=== PATIENT | female | born 1940 | race Caucasian/White ===

== ENCOUNTER 2017-02-01 09:56 | Day surgery (SDC) | payer MEDICARE ==
[2017-01-30 15:08] VITALS: BMI 30.1
[~2017-02-01 09:56] MED LIST: LACTATED RINGERS 1,000 ML IV SCH
[2017-02-01 10:52] VITALS: TEMP 97.7
[2017-02-01] MEDS ORDERED: LIDOCAINE 1% 20 ML VIAL (10MG/ML) FOR IV START INTRADERMA ONE (11:06)
[2017-02-01] MEDS ORDERED: PROPOFOL 10 MG/ML 20 ML VIAL IV ONE (11:07)
[2017-02-01 11:09] LABS: Glucose,Whole Blood 162 mg/dL (75-99)
--- NOTE | 2017-02-01 11:48 | P.PCN ---
Date of Procedure: 02/01/17 Preoperative Diagnosis: Postoperative Diagnosis: Procedure(s) Performed: BRIEF HISTORY: Patient is a -76 year-old pleasant white female, scheduled for an elective colonoscopy as a part of evaluation of recent episode of severe abdominal pain followed by bloody diarrhea for the duration. Her symptoms resolved within one to 2 days and she was discharged home from the hospital. She is scheduled for an outpatient colonoscopy to evaluate further. PROCEDURE PERFORMED: Colonoscopy. PREOPERATIVE DIAGNOSIS: Recent episode of abdominal pain and bloody diarrhea of 1 day duration. IV sedation per Anesthesia. PROCEDURE: After informed consent was obtained, the patient, was brought into the endoscopy unit. IV sedation was administered by Anesthesia under continuous monitoring. Digital rectal examination was normal. Initially the Olympus CF- 160 flexible video colonoscope was then inserted in the rectum, gradually advanced into the sigmoid colon and further advancement was not possible because of acute angle duration and this area. The scope was removed and a pediatric colonoscopy was introduced into the rectum and gradually advanced into the cecum moderate to severe difficulty. Careful examination was performed as the scope was gradually being withdrawn. Ileocecal valve and the appendiceal orifice were visualized and appeared normal. Prep was excellent. Mucosa of the cecum, ascending colon, transverse colon, descending colon, sigmoid colon, and rectum appeared normal. Retroflexion was performed in the rectum and no lesions were seen. The patient tolerated the procedure well. IMPRESSION: Normal-appearing colon from rectum to cecum with no evidence of colitis or colon neoplasia. RECOMMENDATIONS: Findings of this examination were discussed with the patient as well as a family. She was advised to have a repeat screening colonoscopy in 7-10 years based on her overall medical condition. The recent episode of abdominal pain and diarrhea was most likely related to an acute infectious colitis versus ischemic colitis and has completely resolved.. Implants: Indications for Procedure: Operative Findings: Description of Procedure:
[2017-02-01 11:52] VITALS: RESP 16
[2017-02-01 12:06] VITALS: BP 146/67; PULSE 59
== END 2017-02-01 12:32 | disposition home or self-care (01) ==
LOC: ORWHC2ENDO 09:56
PROVIDERS: ATTEND Internal Medicine Gastroenterology
DX: K52.9 Noninfective gastroenteritis and colitis, unspecified (principal); R10.9 Unspecified abdominal pain; K21.9 Gastro-esophageal reflux disease without esophagitis; I10 Essential (primary) hypertension; Z87.891 Personal history of nicotine dependence; E11.9 Type 2 diabetes mellitus without complications; Z79.84 Long term (current) use of oral hypoglycemic drugs; F39 Unspecified mood [affective] disorder; Z79.891 Long term (current) use of opiate analgesic; Z79.51 Long term (current) use of inhaled steroids; Z79.899 Other long term (current) drug therapy
CPT/HCPCS: 45378; J2704

== ENCOUNTER 2017-03-06 07:52 | Day surgery (SDC) | payer MEDICARE ==
[2017-02-28 15:49] VITALS: BMI 28.3
[~2017-03-06 07:52] MED LIST changes: +DEXAMETHASONE SOD PHOSPHATE 10 MG/ML 1 ML VIAL IV ONE; +HYDROmorphone 1 MG/ML 1 ML SYRINGE IVP PRN; +MIDAZOLAM 2 MG/2 ML VIAL IV PRN; +ONDANSETRON 4 MG/2 ML VIAL IVP ONE; +ceFAZolin 2 GM in SODIUM CHLORIDE 0.9% 100 ML IVPB ONE
[2017-03-06 08:36] LABS: Glucose,Whole Blood 110 mg/dL (75-99)
[2017-03-06] MEDS ORDERED: CARVEDILOL 12.5 MG TAB PO STA (08:36)
[2017-03-06] MEDS ORDERED: SCOPOLAMINE 1.5MG/72HR PATCH TRANSDERM STA (08:36)
[2017-03-06] MEDS ORDERED: SUCCINYLCHOLINE CHLORIDE 100 MG/5 ML SYR IV ONE (09:57)
[2017-03-06] MEDS ORDERED: fentaNYL (PF) 50 MCG/ML 2 ML AMP ONE (09:57)
[2017-03-06] MEDS ORDERED: LIDOCAINE 2%-EPI 1:100,000 20 ML VIAL ONE (09:57)
[2017-03-06] MEDS ORDERED: LIDOCAINE 1% INJ 10MG/ML (20 ML MDV) ONE (09:57)
[2017-03-06] MEDS ORDERED: ePHEDrine SULFATE/0.9% NACL/PF 50 MG/5 ML SYRINGE IV ONE (09:57)
[2017-03-06] MEDS ORDERED: PROPOFOL 10 MG/ML 20 ML VIAL IV ONE (09:57)
[2017-03-06] MEDS ORDERED: ROPIVACAINE 5 MG/ML 30 ML VIAL ONE (09:57)
[2017-03-06] MEDS ORDERED: ePHEDrine 50 MG/ML 1 ML AMP ONE (09:57)
[2017-03-06] MEDS ORDERED: hydrALAZINE HCL 20 MG/ML 1 ML VIAL ONE (09:57)
[2017-03-06] MEDS ORDERED: METOCLOPRAMIDE 5 MG/ML 2 ML VIAL IVP PRN (10:06)
[2017-03-06] MEDS ORDERED: HYDROmorphone 1 MG/ML 1 ML SYRINGE IVP PRN ×2 (10:06)
[2017-03-06] MEDS ORDERED: ONDANSETRON 4 MG/2 ML VIAL IVP PRN (10:06)
[2017-03-06] MEDS ORDERED: hydrOXYzine PAMOATE 25 MG CAP PO PRN (10:06)
[2017-03-06] MEDS ORDERED: LACTATED RINGERS 1,000 ML IV ONE (11:12)
[2017-03-06 12:08] VITALS: RESP 16
[2017-03-06] MEDS ORDERED: ONDANSETRON 4 MG/2 ML VIAL IVP ONE (12:18)
[2017-03-06] MEDS ORDERED: KETOROLAC 30 MG/ML 1 ML VIAL IVP ONE (12:23)
[2017-03-06] MEDS ORDERED: METOCLOPRAMIDE 5 MG/ML 2 ML VIAL IVP ONE (12:26)
[2017-03-06 12:45] LABS: Glucose,Whole Blood 197 mg/dL (75-99)
--- NOTE | 2017-03-06 13:18 | XR ---
Limited left shoulder HISTORY: Postop Single frontal view of the left shoulder submitted. Patient is status post left shoulder arthroplasty. Bone mineralization is reduced. Alignment is maint ained. There may be distal acromial spur. Arthropathy present at the acromioclavicular joint. Possibl e interstitial lung disease noted at the left lung apex. Lucency in the soft tissues compatible with postop state. IMPRESSION: Orthopedic follow-up and additional findings above.
[2017-03-06] MEDS: LACTATED RINGERS 1,000 ML IV SCH ×2 (13:45→23:02)
[2017-03-06] MEDS: ceFAZolin 2 GM in SODIUM CHLORIDE 0.9% 100 ML IVPB SCH ×2 (16:48→23:04)
[2017-03-06 16:51] LABS: Glucose,Whole Blood 145 mg/dL (75-99)
[2017-03-06] MEDS ORDERED: ALBUTEROL NEBULIZED 2.5 MG/3 ML INHALATION PRN (19:46)
[2017-03-06] MEDS ORDERED: IBUPROFEN 600 MG TAB PO PRN (19:46)
[2017-03-06] MEDS ORDERED: Acetaminophen-Codeine 300-30mg TAB PO PRN (19:46)
[2017-03-06] MEDS ORDERED: LINAGLIPTIN 5 MG TABLET PO PRN (19:46)
[2017-03-06] MEDS ORDERED: ALPRAZolam 0.25 MG TAB PO PRN (19:46)
[2017-03-06] MEDS ORDERED: FLUTICASONE 50MCG/SPRAY NASAL 16GM EA NOSTRIL PRN (19:46)
[2017-03-06] MEDS: SYMBICORT 80-4.5 MCG INHALER INHALATION SCH (20:21)
[2017-03-06] MEDS: CARVEDILOL 12.5 MG TAB PO SCH (20:32)
[2017-03-06] MEDS: amLODIPine 2.5 MG TAB PO SCH (20:32)
[2017-03-06] MEDS: FLUoxetine HCL 10 MG CAP PO SCH (20:32)
[2017-03-06 20:47] LABS: Glucose,Whole Blood 232 mg/dL (75-99)
[2017-03-06] MEDS ORDERED: SENNOSIDES-DOCUSATE SODIUM 1 EACH TAB PO PRN (21:00)
[2017-03-06] MEDS ORDERED: diphenhydrAMINE 25 MG CAP PO PRN (21:00)
[2017-03-06] MEDS ORDERED: FAMOTIDINE 20 MG TAB PO SCH (21:00)
[2017-03-06] MEDS ORDERED: TEMAZEPAM 15 MG CAP PO PRN (21:00)
[2017-03-06] MEDS: HYDROmorphone 1 MG/ML 1 ML SYRINGE IVP PRN ×2 (21:37→23:38)
[2017-03-07] MEDS: HYDROmorphone 1 MG/ML 1 ML SYRINGE IVP PRN ×2 (02:11→04:40)
[2017-03-07 07:02] LABS: Glucose,Whole Blood 137 mg/dL (75-99)
[2017-03-07] MEDS ORDERED: metFORMIN 500 MG TAB PO SCH (07:30)
[2017-03-07] MEDS ORDERED: GLIMEPIRIDE 1 MG TAB PO SCH (07:30)
[2017-03-07 08:00] LABS: Basophils % (A) 0 %; CHCM 32.6; Eosinophils % (A) 0 %; HCT 34.3 % (34.0-46.0); HDW 2.65; HGB 10.9 gm/dL (11.4-16.0); Luc # (Auto) 0.21; Luc % (Auto) 2; Lymphocytes # (A) 0.9 k/uL (1.0-4.8); Lymphocytes % (A) 10 %; MCH 28.4 pg (25.0-35.0); MCHC 31.7 g/dL (31.0-37.0); MCV 89.4 fL (80.0-100.0); Mean Platelet Volume 7.2; Monocytes # (A) 0.7 k/uL (0-1.0); Monocytes % (A) 8 %; Neutrophils # (A) 7.2 k/uL (1.3-7.7); Neutrophils % (A) 79 %; RBC 3.84 m/uL (3.80-5.40); WBC 9.1 k/uL (3.8-10.6); WBC (Perox) 9.22
[2017-03-07] MEDS ORDERED: HYDROcodone/APAP 5-325MG 1 EACH TAB PO PRN (08:01)
[2017-03-07] MEDS: CARVEDILOL 12.5 MG TAB PO SCH (08:30)
[2017-03-07] MEDS: amLODIPine 2.5 MG TAB PO SCH ×2 (08:30→10:09)
[2017-03-07] MEDS: FLUoxetine HCL 10 MG CAP PO SCH (08:30)
[2017-03-07] MEDS: LACTATED RINGERS 1,000 ML IV SCH (08:34)
[2017-03-07] MEDS ORDERED: LISINOPRIL 10 MG TAB PO SCH (09:00)
[2017-03-07 09:05] VITALS: BP 194/77; PULSE 75; TEMP 98.4
[2017-03-07] MEDS: SYMBICORT 80-4.5 MCG INHALER INHALATION SCH (09:12)
--- NOTE | 2017-03-07 09:21 | P.DS ---
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 After discussion and consideration the patient elects to proceed withl shoulder articular resurfacing. The pt is seen preoperatively by their family physician and cleared for surgery. The patient is admitted to [facility] on 03/06/2017 for humeral head resurfacing left shoulder. She is doing well postoperatively. Vital signs and hemoglobin are stable. The pt is able to get up out of bed independently and is ambulating without assistance. Pain is well controlled. Patient is discharged to home on postoperative day #1 in good condition. Please see med rec for accurate list of home medications. Patient Condition at Discharge: Good Plan - Discharge Summary New Discharge Prescriptions: New HYDROcodone/APAP 5-325MG [[place] 5-325] 1 - 2 each PO Q4-6H PRN #90 tab PRN Reason: Pain Sennosides-Docusate Sodium [Senokot-S] 1 tab PO BID #60 tablet No Action Fluticasone Nasal Draper [Flonase Nasal Draper] 1 spray EA NOSTRIL DAILY PRN PRN Reason: Allergy Symptoms Albuterol Inhaler [Ventolin Hfa Inhaler] 1 - 2 puff INHALATION Q6HR PRN PRN Reason: Shortness Of Breath Ranitidine HCl 150 mg PO HS sitaGLIPtin [Januvia] 100 mg PO DAILY PRN PRN Reason: PRN WHEN TAKING STEROIDS. Carvedilol [Coreg] 12.5 mg PO BID Acetaminophen-Codeine 300-30mg [Tylenol #3] 1 tab PO Q8H PRN PRN Reason: Pain metFORMIN HCL [Metformin HCl] 500 mg PO BID-W/MEALS amLODIPine BESYLATE [Norvasc] 2.5 mg PO BID Fluticasone/Vilanterol [Breo Ellipta 100-25 Mcg Inhaler] 1 dose INHALATION BID ALPRAZolam [Xanax] 0.25 mg PO BID PRN PRN Reason: Anxiety FLUoxetine HCL [PROzac] 10 mg PO BID Glimepiride [Amaryl] 1 mg PO AC-BRKFST Lisinopril [Zestril] 10 mg PO DAILY Ibuprofen [Motrin] 600 mg PO Q8HR PRN PRN Reason: Pain Discharge Medication List Acetaminophen-Codeine 300-30mg [Tylenol #3] 1 tab PO Q8H PRN 01/12/17 [History] Albuterol Inhaler [Ventolin Hfa Inhaler] 1 - 2 puff INHALATION Q6HR PRN [History] Carvedilol [Coreg] 12.5 mg PO BID 01/12/17 [History] Fluticasone Nasal Draper [Flonase Nasal Draper] 1 spray EA NOSTRIL DAILY PRN 01/12 [History] Fluticasone/Vilanterol [Breo Ellipta 100-25 Mcg Inhaler] 1 dose INHALATION BID 01/12/17 [History] Ranitidine HCl 150 mg PO HS 01/12/17 [History] amLODIPine BESYLATE [Norvasc] 2.5 mg PO BID 01/12/17 [History] metFORMIN HCL [Metformin HCl] 500 mg PO BID-W/MEALS 01/12/17 [History] sitaGLIPtin [Januvia] 100 mg PO DAILY PRN 01/12/17 [History] ALPRAZolam [Xanax] 0.25 mg PO BID PRN 02/28/17 [History] FLUoxetine HCL [PROzac] 10 mg PO BID 02/28/17 [History] Glimepiride [Amaryl] 1 mg PO AC-BRKFST 02/28/17 [History] Ibuprofen [Motrin] 600 mg PO Q8HR PRN 02/28/17 [History] Lisinopril [Zestril] 10 mg PO DAILY 02/28/17 [History] HYDROcodone/APAP 5-325MG [[place] 5-325] 1 - 2 each PO Q4-6H PRN #90 tab 03/07/17 [Rx] Sennosides-Docusate Sodium [Senokot-S] 1 tab PO BID #60 tablet 03/07/17 [Rx] Follow up Appointment(s)/Referral(s): Fermín Red DO [Doctor of Osteopathic Medicine] - 2 Weeks Activity/Diet/Wound Care/Special Instructions: Maintain shoulder immobilizer. May shower if no drainage from incision. Discharge Disposition: HOME SELF-CARE
--- NOTE | 2017-03-08 08:44 | OP ---
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 OPERATION: Manipulation left shoulder under anesthesia, left humeral head subcapsular utilizing capsular component, hemiarthroplasty. PROCEDURE: Patient was taken to the operative suite and placed in supine position. General inhalation is performed by the Department of Anesthesiology. Betadine prep was carried out over the left shoulder and stable drapes applied in the usual manner. Patient has been secured in the the beach chair and inclination. An anterior deltoid incision was developed and further dissection through the subcutaneous tissues was performed. The cephalic vein was noted and was tied off with suture at this time. The deltoid is then retracted and great visualization of the biceps tendon was noted. Medial ruptured biceps tendon and capsule off of the humeral head. Inferior bleed well controlled. With the head secure further evaluation of rotator cuff tear was carried out. The edge is smoothed with a rongeur. Guidewire was inserted through the appropriate guide to to a size 4. The shaving was carried out and appropriate position was noted. The trial component placed in position in the shoulder and reduced. Alignment and stability maintained and no significant impingement noted at this time. The irrigation with antibiotic solution is performed. The final component was placed and anchored humeral head and impacted Press fit component. The shoulder was examined, stability maintained and the arm was then placed in slight adduction with rotation direction. Capsule and subcutaneous tissue reapproximated with #1 Ethibond suture. #3 Vicryl suture was utilized in running fashion. Irrigation performed. Hemostasis was well controlled. The deltoid tissue was reapproximated with 2-0 Vicryl suture. Subcutaneous tissue approximated with 2- 0 Vicryl interrupted sutures. Skin was approximated with 2-0 Quill suture in subcuticular fashion. Dermabond was placed on wound sealing the wound. Placed sterile dressings and abductor pillow splint. Patient was transferred to recovery room in satisfactory postop condition. GROSS PATHOLOGY: There was evidence of degenerative joint disease and small rotator cuff adhesive capsulitis and chronic impingement of the rotator cuff. [facility]ITAL[facility]
== END 2017-03-07 11:19 | disposition home or self-care (01) ==
LOC: OR 07:52 → 3SUR 11:51 → OR 03-07 11:19
PROVIDERS: ATTEND Orthopaedic Surgery
DX: M75.02 Adhesive capsulitis of left shoulder (principal); M19.012 Primary osteoarthritis, left shoulder; M75.112 Incomplete rotator cuff tear or rupture of left shoulder, not specified as traumatic; M75.42 Impingement syndrome of left shoulder; M75.22 Bicipital tendinitis, left shoulder; E11.9 Type 2 diabetes mellitus without complications; F32.9 Major depressive disorder, single episode, unspecified; J44.9 Chronic obstructive pulmonary disease, unspecified; I10 Essential (primary) hypertension; E78.5 Hyperlipidemia, unspecified; F41.9 Anxiety disorder, unspecified; Z79.84 Long term (current) use of oral hypoglycemic drugs; Z79.891 Long term (current) use of opiate analgesic; Z79.899 Other long term (current) drug therapy; Z88.0 Allergy status to penicillin; Z87.891 Personal history of nicotine dependence
CPT/HCPCS: 23470; 94640 ×2; 64415; 85025; 73020; C1713; J2250; J0360; J1100; J2765; J0690; J2405; J2001; J3010; J1885; J1170 ×2; J2795; J0330; J2704

== ENCOUNTER → 2018-06-11 | Outpatient (CLI) | payer MEDICARE ==
--- NOTE | 2018-06-11 15:13 | CT ---
EXAMINATION TYPE: CT angio abd aorta w/Runoff DATE OF EXAM: 06/11/2018 HISTORY: Leg weakness CT DLP: 884.8mGycm Automated Exposure Control for Dose Reduction was Utilized. CONTRAST: CTA scan of the abdomen and pelvis is performed without oral with IV Contrast, patient injected with 125 mL of Isovue 370. Three-D reconstructed images are created on independent workstation and reviewe d. COMPARISON: None. FINDINGS: VASCULAR: Presence of significant calcified plaque is noted to lower sensitivity for grading focal s tenosis. There is moderate to severe eccentric plaque in the lower thoracic and proximal abdominal ao rta. There is patent celiac axis with eccentric calcified plaque, no significant stenosis is clearly seen. There is more severe calcified plaque in the SMA at its origin, significant stenosis is felt pr esent coronal image 37. There is prominent calcified plaque at origin of both renal arteries, no sign ificant stenosis however seen on coronal images. There is a patent DELANEY without significant stenosis. There is prominent noncalcified plaque in the infrarenal abdominal aorta obliterating roughly 80% of the vascular lumen axial image 61. There is prominent rim calcified plaque surrounding the vasculariz ed portion of the infrarenal aorta with lumen diameter narrowed to 3 to 4 mm. There is severe mixed plaque in the common iliac arteries causing significant stenosis near origin ax ial image 75. There is occlusion of the left common iliac artery shortly after its origin. Focal aneu rysm in the left external iliac artery axial image 97 measuring 12 x 8 mm with reconstitution from co llateral vessel. There is occluded left external iliac artery, there is reconstitution in the left gr oin presumably from collateral vessel. There is moderate to severe eccentric calcified plaque left common femoral artery with successful bif urcation into superficial and deep femoral arteries. Left superficial femoral artery shows no signifi cant plaque or stenosis. There is no significant plaque or stenosis in left popliteal artery. There i s successful bifurcation and trifurcation below left knee with three-vessel origin to mid leg level a nd 2 vessel origin distal ankle level without significant focal plaque or stenosis. There is severe plaque at bifurcation right common iliac artery with significant plaque and stenosis suspected in the right internal iliac artery. There is small caliber right external iliac artery with moderate to severe noncalcified plaque. There is increased prominence or size of the distal right ex ternal iliac artery with moderate to severe eccentric calcified plaque in the right common femoral ar seven. There is successful visualization of bifurcation into superficial and deep femoral arteries wit h mild eccentric plaque in the proximal right superficial femoral artery. No significant stenosis and superficial femoral or popliteal artery is present. There is successful bifurcation and trifurcation below the knee. There is good three-vessel flow mid leg level and good 2 vessel flow right ankle lev el. LUNG BASES: Mild chronic emphysematous and parenchymal changes in visualized bases is present. There is prominent calcification at level of mitral valve. LIVER/GB: Few subcentimeter hypodense lesions throughout the liver are too small to further character ize but presumed benign. Cholecystectomy clips are noted. PANCREAS: No significant abnormality is seen. SPLEEN: No significant abnormality is seen. ADRENALS: No significant abnormality is seen. KIDNEYS: Underlying polycystic kidney disease is felt present as there are numerous cysts scattered t hroughout both kidneys. 4.6 cm partially exophytic slightly hyperdense cyst anteriorly upper pole le robbie right kidney could reflect cystic neoplasm or solid lesion and warrants follow-up. Similar smalle r slightly hyperdense 2.1 cm lesion left kidney axial image 71 as noted BOWEL: No significant abnormality is seen. UTERUS/ADNEXA: Uterus is surgically absent or markedly atrophic. LYMPH NODES: No greater than 1cm abdominal or pelvic lymph nodes are appreciated. OSSEOUS STRUCTURES: No significant abnormality is seen. OTHER: No significant additional abnormality is seen. IMPRESSION: 1. This patient has large to medium-size significant vascular disease without significant plaque or s tenosis in smaller vessels of the bilateral lower extremities. There is marked stenosis of the infrar enal abdominal aorta noted. There is complete occlusion of the left common and external iliac artery with reconstitution near left groin. There is significant stenosis is in the right common and externa l iliac arteries. There is suspected significant stenosis in the origin at the origin of the SMA. Adv ise angiogram follow-up to further evaluate and/or treat with possible angioplasty and/or stent place ment. 2. Possible underlying polycystic kidney disease. 2 nonsimple appearing cysts are noted in both kidne ys. Follow-up renal protocol contrast-enhanced MRI advised to rule out cystic neoplasm or solid mass in these 2 lesions.
== END | disposition home or self-care (01) ==
LOC: RADCTMAIN 13:13
PROVIDERS: ATTEND Internal Medicine Interventional Cardiology
DX: I73.9 Peripheral vascular disease, unspecified (principal); I74.5 Embolism and thrombosis of iliac artery; I74.09 Other arterial embolism and thrombosis of abdominal aorta; N28.1 Cyst of kidney, acquired
CPT/HCPCS: 82565; 84520; 75635; 36415; Q9967

== ENCOUNTER → 2018-07-11 | Outpatient (CLI) | payer MEDICARE ==
--- NOTE | 2018-07-12 03:08 | MR ---
EXAMINATION TYPE: MR kidney wo/w con DATE OF EXAM: 07/11/2018 COMPARISON: CT scan 06/11/2018 HISTORY: Cyst of kidney, acquired,Gadavist 7.rml CONTRAST: Standard multiplanar, multisequence MRI departmental protocol utilizing 7.5 mL intravenous Gadavist g adolinium contrast. FINDINGS: There are numerous variable sized cysts involving both kidneys. Some of these are quite lar ge and the largest on the lower pole left kidney measures 10.4 cm. This is consistent with adult poly cystic kidney disease. I see no hydronephrosis. There is considerable distortion of the renal parench yma. There is 3.5 cm irregular area of mixed signal in the lower pole lateral aspect of the right kid david that I think is due to distorted renal parenchyma. This enhances equally with the adjacent normal renal cortex. There is a 4 cm rounded mixed signal mass involving the anterior upper pole of the right kidney. This does not show enhancement pattern consistent with a tumor. I think this is a complex cyst with inter nal debris. The largest cyst on the lower pole left kidney shows layering consistent with a complex c yst. I do not see pathologic enhancement of the kidneys to suggest a tumor. There is no evidence of r etroperitoneal adenopathy. There is no sign of ascites. Liver shows a few scattered cysts. These are relatively small. Spleen and pancreas are unremarkable. There is no evidence of an adrenal mass. I see no bony destructive process. IMPRESSION: Advanced bilateral type polycystic kidney disease. Numerous cysts with variable signal pattern consis tent with varying amounts of debris and calcium and protein deposits. No enhancing mass to suggest a tumor. There is overall not a significant change compared to the CT scan of 06/11/2018.
== END | disposition home or self-care (01) ==
LOC: RADMRIMAIN 16:53
PROVIDERS: ATTEND Family Medicine
DX: Q61.3 Polycystic kidney, unspecified (principal)
CPT/HCPCS: 74183; A9585

== ENCOUNTER → 2018-10-07 | Outpatient (CLI) | payer MEDICARE ==
[2018-10-07 11:15] LABS: Basophils # (A) 0.1 k/uL (0-0.2); Basophils % (A) 1 %; Eosinophils # (A) 0.6 k/uL (0-0.7); Eosinophils % (A) 8 %; HCT 38.4 % (34.0-46.0); Hypochromasia Slight; Lymphocytes # (A) 0.8 k/uL (1.0-4.8); Lymphocytes % (A) 11 %; MCH 27.7 pg (25.0-35.0); MCHC 31.2 g/dL (31.0-37.0); MCV 88.7 fL (80.0-100.0); Mean Platelet Volume 6.7; Monocytes # (A) 0.5 k/uL (0-1.0); Monocytes % (A) 6 %; Neutrophils # (A) 5.2 k/uL (1.3-7.7); Neutrophils % (A) 72 %; Platelet Count 391 k/uL (150-450); RBC 4.34 m/uL (3.80-5.40); RDW 14.8 % (11.5-15.5); WBC 7.2 k/uL (3.8-10.6)
[2018-10-07 11:34] LABS: Anion Gap 8 mmol/L; Blood Urea Nitrogen 16 mg/dL (7-17); Carbon Dioxide 26 mmol/L (22-30); Chloride 106 mmol/L (98-107); Potassium 3.8 mmol/L (3.5-5.1); Sodium 140 mmol/L (137-145)
== END ==
LOC: LABPAT 10:09
PROVIDERS: ATTEND Surgery
DX: Z01.812 Encounter for preprocedural laboratory examination (principal); I74.09 Other arterial embolism and thrombosis of abdominal aorta
CPT/HCPCS: 36415; 80051; 82565; 84520; 85025

== ENCOUNTER 2018-10-11 06:21 | Inpatient (IN) | payer MEDICARE ==
[2018-10-08 10:12] VITALS: BMI 26.5
[~2018-10-11 06:21] MED LIST changes: -DEXAMETHASONE SOD PHOSPHATE 10 MG/ML 1 ML VIAL IV ONE; -HYDROmorphone 1 MG/ML 1 ML SYRINGE IVP PRN; -LACTATED RINGERS 1,000 ML IV SCH; +SODIUM CHLORIDE 0.9% 1,000 ML in EMPTY BAG 1 BAG IV ONE; -ceFAZolin 2 GM in SODIUM CHLORIDE 0.9% 100 ML IVPB ONE
[2018-10-11] MEDS ORDERED: ceFAZolin IN SWFI 2 GM/20 ML SYRINGE IVP ONE (06:30)
[2018-10-11] MEDS ORDERED: ESMOLOL 100 MG/10 ML VIAL ONE (07:23)
[2018-10-11] MEDS ORDERED: GLYCOPYRROLATE 0.2 MG/ML 2 ML VIAL ONE (07:23)
[2018-10-11] MEDS ORDERED: ePHEDrine SULFATE/0.9% NACL/PF 50 MG/5 ML SYRINGE IV ONE (07:23)
[2018-10-11] MEDS ORDERED: fentaNYL (PF) 50 MCG/ML 2 ML AMP ONE ×2 (07:23)
[2018-10-11] MEDS ORDERED: PROPOFOL 10 MG/ML 20 ML VIAL IV ONE (07:23)
[2018-10-11] MEDS ORDERED: MIDAZOLAM 2 MG/2 ML VIAL ONE (07:23)
[2018-10-11] MEDS ORDERED: LIDOCAINE 1% INJ 10MG/ML (20 ML MDV) ONE (07:23)
[2018-10-11] MEDS ORDERED: HEPARIN SODIUM,PORCINE 10,000 UNIT/ML 1 ML VIAL ONE (07:23)
[2018-10-11] MEDS ORDERED: NEOSTIGMINE 1 MG/ML 10 ML VIAL ONE (07:23)
[2018-10-11] MEDS ORDERED: HEPARIN SODIUM,PORCINE 5,000 UNIT/ML 1 ML VIAL ONE (07:23)
[2018-10-11] MEDS ORDERED: ROCURONIUM BROMIDE 10 MG/ML 10 ML VIAL IV ONE ×2 (07:23)
[2018-10-11 07:25] LABS: Glucose,Whole Blood 142 mg/dL (75-99)
[2018-10-11] MEDS ORDERED: SODIUM CHLORIDE 0.9% 1,000 ML IV ONE (07:26)
[2018-10-11] MEDS ORDERED: IOPAMIDOL-300 100ML BTL INJ ONE (09:30)
[2018-10-11 12:39] LABS: Basophils % (A) 1 %; Eosinophils # (A) 0.4 k/uL (0-0.7); Eosinophils % (A) 6 %; HCT 27.4 % (34.0-46.0); Lymphocytes # (A) 0.8 k/uL (1.0-4.8); Lymphocytes % (A) 14 %; MCH 28.3 pg (25.0-35.0); MCHC 32.8 g/dL (31.0-37.0); MCV 86.2 fL (80.0-100.0); Mean Platelet Volume 5.9; Monocytes # (A) 0.4 k/uL (0-1.0); Monocytes % (A) 7 %; Neutrophils # (A) 4.3 k/uL (1.3-7.7); Neutrophils % (A) 72 %; Platelet Count 334 k/uL (150-450); RBC 3.17 m/uL (3.80-5.40); RDW 14.9 % (11.5-15.5)
[2018-10-11] MEDS ORDERED: IOPAMIDOL-250 100ML BTL INTRAARTER ONE ×2 (12:45→14:15)
[2018-10-11] MEDS ORDERED: Acetaminophen-Codeine 300-30mg TAB PO PRN (14:23)
[2018-10-11] MEDS ORDERED: FLUTICASONE 50MCG/SPRAY NASAL 16GM EA NOSTRIL PRN (14:23)
[2018-10-11] MEDS ORDERED: LINAGLIPTIN 5 MG TABLET PO PRN (14:23)
[2018-10-11 14:27] LABS: Basophils % (A) 0 %; Eosinophils # (A) 0.2 k/uL (0-0.7); Eosinophils % (A) 3 %; HCT 24.3 % (34.0-46.0); HGB 7.8 gm/dL (11.4-16.0); Lymphocytes # (A) 0.6 k/uL (1.0-4.8); Lymphocytes % (A) 9 %; MCH 27.8 pg (25.0-35.0); MCV 86.8 fL (80.0-100.0); Mean Platelet Volume 6.4; Monocytes # (A) 0.4 k/uL (0-1.0); Monocytes % (A) 5 %; Neutrophils # (A) 5.8 k/uL (1.3-7.7); Neutrophils % (A) 82 %; Platelet Count 315 k/uL (150-450); WBC 7.1 k/uL (3.8-10.6)
[2018-10-11] MEDS ORDERED: LACTATED RINGERS 1,000 ML IV ONE ×4 (14:50→15:30)
[2018-10-11] MEDS: HYDROmorphone 0.5 MG/0.5 ML SYRINGE IVP PRN ×4 (15:04→16:30)
[2018-10-11] MEDS ORDERED: ONDANSETRON 4 MG/2 ML VIAL IVP ONE (15:13)
[2018-10-11 16:01] LABS: Sodium 138 mmol/L (137-145)
[2018-10-11 16:02] LABS: Anion Gap 7 mmol/L; Blood Urea Nitrogen 14 mg/dL (7-17); Calcium 7.9 mg/dL (8.4-10.2); Carbon Dioxide 23 mmol/L (22-30); Chloride 108 mmol/L (98-107); Glucose 152 mg/dL (74-99); Potassium 3.4 mmol/L (3.5-5.1)
--- NOTE | 2018-10-11 16:11 | IR ---
Fluoroscopy HISTORY: Abdominal aortic aneurysm 123.1 minutes fluoroscopy time supplied to the referring clinician. 1715 intraoperative C-arm images document the procedure. See dictated report from vascular surgery.
[2018-10-11] MEDS ORDERED: hydrALAZINE HCL 20 MG/ML 1 ML VIAL IVP ONE (16:14)
[2018-10-11 16:16] LABS: Glucose,Whole Blood 156 mg/dL (75-99)
[2018-10-11 17:47] LABS: Glucose,Whole Blood 184 mg/dL (75-99)
[2018-10-11] MEDS: CARVEDILOL 12.5 MG TAB PO SCH (17:47)
[2018-10-11] MEDS: HYDROcodone/APAP 5-325MG 1 EACH TAB PO PRN ×2 (17:48→23:15)
[2018-10-11] MEDS: SODIUM CHLORIDE 0.9% 1,000 ML IV SCH (17:55)
[2018-10-11] MEDS: LACTATED RINGERS 1,000 ML IV SCH (17:55)
[2018-10-11] MEDS: INSULIN ASPART (NovoLOG) 100 UNIT/ML VIAL SQ SCH ×2 (17:58→20:28)
[2018-10-11] MEDS ORDERED: Potassium Replacement Protocol 1 EACH MISC MISCELLANE PRN (18:27)
[2018-10-11] MEDS: amLODIPine 2.5 MG TAB PO SCH (18:45)
[2018-10-11] MEDS: POTASSIUM CHLORIDE ER 20 MEQ TAB.ER PO SCH ×2 (18:45→20:27)
[2018-10-11 20:27] LABS: Glucose,Whole Blood 107 mg/dL (75-99)
[2018-10-11] MEDS: ALPRAZolam 0.25 MG TAB PO PRN (20:28)
[2018-10-11] MEDS: FAMOTIDINE 20 MG TAB PO SCH (20:28)
[2018-10-11] MEDS: FLUoxetine HCL 10 MG CAP PO SCH (20:28)
[2018-10-12 00:39] LABS: HCT 27.3 % (34.0-46.0); HGB 8.4 gm/dL (11.4-16.0); Hypochromasia Slight; MCH 27.5 pg (25.0-35.0); MCHC 30.9 g/dL (31.0-37.0); MCV 89.1 fL (80.0-100.0); Mean Platelet Volume 6.8; Platelet Count 330 k/uL (150-450); RBC 3.06 m/uL (3.80-5.40); RDW 15.1 % (11.5-15.5); WBC 8.7 k/uL (3.8-10.6)
[2018-10-12] MEDS: POTASSIUM CHLORIDE ER 20 MEQ TAB.ER PO SCH ×2 (02:07→02:57)
[2018-10-12] MEDS: SODIUM CHLORIDE 0.9% 1,000 ML IV SCH ×4 (02:57→22:33)
[2018-10-12] MEDS: ALPRAZolam 0.25 MG TAB PO PRN ×3 (02:58→20:56)
[2018-10-12] MEDS: HYDROcodone/APAP 5-325MG 1 EACH TAB PO PRN ×2 (06:10→20:59)
[2018-10-12] MEDS: CARVEDILOL 12.5 MG TAB PO SCH ×2 (06:11→18:52)
[2018-10-12] MEDS: LACTATED RINGERS 1,000 ML IV SCH (06:12)
[2018-10-12 07:01] LABS: Glucose,Whole Blood 145 mg/dL (75-99)
[2018-10-12] MEDS: GLIMEPIRIDE 1 MG TAB PO SCH (07:01)
[2018-10-12] MEDS: INSULIN ASPART (NovoLOG) 100 UNIT/ML VIAL SQ SCH ×4 (07:01→20:55)
[2018-10-12 07:04] LABS: Anion Gap 5 mmol/L; Blood Urea Nitrogen 13 mg/dL (7-17); Calcium 7.7 mg/dL (8.4-10.2); Carbon Dioxide 22 mmol/L (22-30); Chloride 111 mmol/L (98-107); Glucose 113 mg/dL (74-99); Potassium 4.1 mmol/L (3.5-5.1); Sodium 138 mmol/L (137-145)
[2018-10-12] MEDS: ATORVASTATIN 40 MG TAB PO SCH (07:55)
[2018-10-12] MEDS: amLODIPine 2.5 MG TAB PO SCH ×2 (07:55→20:55)
[2018-10-12] MEDS: ASPIRIN 81 MG PO SCH (07:55)
[2018-10-12] MEDS: LISINOPRIL 10 MG TAB PO SCH (07:55)
[2018-10-12] MEDS: FLUoxetine HCL 10 MG CAP PO SCH ×2 (07:56→20:55)
--- NOTE | 2018-10-12 09:00 | P.OP ---
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 Disabiling claudication Procedure(s) Performed: Endovascular repair of aortic-iliac occlusion with AFX2 graft Bilateral external iliac artery balloon angioplasty with stent placement Bilateral femoral artery and left brachial artery access under ultrasound guidance Intravascular pressure gradients Aortogram with selective bilateral iliac artery angiograms Implants: Endologix AFX2 graft Everflex stents x 2 Anesthesia: GETA Surgeon: Cedric Smiley Estimated Blood Loss (ml): 200 Urine output (ml): 400 Pathology: none sent Condition: stable Disposition: PACU Indications for Procedure: 77 year old female with history of claudication presented to the hospital with worsening pain with ambulation and can only walk 1 block without severe pain in her thigh and calves. She had arterial dopplers and CTA of the abdomen and pelvis which demonstrated severe aortoiliac occlusive disease with minimal flow through the iliac arteries. She presents today for elective endovascular repair. Operative Findings: Total occlusion of bilateral common iliac and external iliac arteries with severe stenosis of the distal aorta. Description of Procedure: After written and informed consent was obtained and all risks, benefits, and complications were described the patient was brought to the electrical laboratory technician and laid in a supine position with her left arm out on an armboard. After appropriate anesthetic was performed per anesthesia the area of the bilateral groins and left arm were prepped and draped in the usual sterile fashion. A time-out was performed with all parties in agreement and patient was administered antibiotics prior to any incisions. Using ultrasound, bilateral femoral arteries were visualized and shown to be patent with some posterior plaque noted. Using a multipurpose needle and Seldinger technique a 6 [place] sheath was placed in the right groin and perclose closure device was placed in the left groin followed by a 7 cost[place]ican sheath. Patient was then given heparin and followed with serial ACTs and redosed as needed. Retrograde angiograms were then obtained from the femoral sheaths demonstrated no flow through either iliac arteries confirming chronic total occlusions. Due to the severity of the lesions the decision to place a catheter from the arm was made. Using ultrasound and Seldinger technique a 5 [place] sheath was placed in the left brachial artery. An .035 glidewire was then placed into the descending aorta with the help of a pigtail catheter. Aortogram was then obtained demonstrating stenotic distal aorta with occlusion and large collateral vessels with reconstitution at the external iliac on the right and femoral artery on the left. A stiff wire was then placed and a 6 [place] long sheath was placed from the arm to just above the occlusion. Multiple wires and crossing catheters were then utilized to cross the right iliac occlusion which was severely diseased and calcified. Once across the lesion the wire was then snared from the femoral sheath and crossing catheter was placed across the lesion into the brachial sheath. The wire was then brought out the femoral and brachial sheath in a body floss matter. Attention was then placed to the left iliac occlusion. Once again multiple wires and catheters were utilized to cross the left iliac occlusion from the same brachial sheath which was extremely difficult. Once across the lesion the wire was once again snared and body flossed from the left femoral sheath and brachial sheath. At this time there were two wires through the brachial sheath across the iliac lesions. Once the lesions were crossed a 5x40 mm balloon was used and angioplasty was performed across the occlusions into the aorta to allow for dilatators and sheaths in order to place the AFX2 device. Perclose closure devices were placed in the right femoral artery at that time over the wire followed by serial dilation of the iliac artery with 12, 14 and 16 costa rican dilators. The AFX2 sheath was then placed at the bifurcation of the iliacs. Balloon angioplasty of the left iliac was also performed and a long 7 [place] sheath was placed across the occlusion into the aorta above the bifurcation and snare catheter was then placed in order to place the AFX 2 device. Once all pieces were in place the AFX2 [id number] limb device was placed and the contralateral limb wire was snared and the device was brought down to the bif urcation. Once sitting on the bifurcation the devices was deployed in the usual fashion first with the main body the the contralateral limb. Pigtail catheter was then placed to dislodge the up and over wire and the catheter was placed in the aorta and wire was removed. Ipsilateral limb was then deployed in normal fashion. Using a Coda balloon the fabric in the aorta was smoothed out and aortogram was then obtained. Good resolution of the occlusion was noted for the aorta and bilateral common iliacs but there was dissection flaps noted extending to the areas of the external iliac artery bilaterally. Everflex 8x80mm stent was then placed from the limb of the graft and extended to the right external iliac artery as well as an [id number] stent placed on the left extending to the external iliac artery. Balloon angioplasty was then performed through the stents and final angiogram was performed which demonstrated brisk flow through out the stents and resolution of the dissection and occlusions. There was some narrowing at the left iliac main limb and therefore intravascular pressures were obtain which showed 20mmHg drop on the left and therefore a 7mm balloon was used to balloon the bifurcation with resolution of the pressure discrepancy. All catheters and sheaths were removed from the femoral arteries and perclose were secured without complete control of bleeding there fore an 8F angioseal was used for the right groin for hemostasis. Hemostasis was obtained and angiogram from the brachial sheath demonstrated no leak or bleeding from either groin and good brisk flow to bilateral profundus and SFA arteries. Brachial sheath was then removed and pressure placed for hemostasis. Patient tolerated the procedure well and had palpable PT pulses. She was then sent to PACU for recovery.
--- NOTE | 2018-10-12 10:57 | P.PN ---
Subjective Progress Note Date: 10/12/18 Principal diagnosis: Severe aortoiliac occlusive disease. Status post complex endovascular aortoiliac reconstruction. Patient has no significant complaints today. She denies leg pain or abdominal pain. Objective - Vital Signs Vital signs: Vital Signs Temp 99.1 F 10/12/18 08:00 Pulse 64 10/12/18 10:01 Resp 13 10/12/18 10:01 BP 145/85 10/12/18 10:01 Pulse Ox 97 10/12/18 10:01 Intake & Output 10/11/18 10/12/18 10/12/18 18:59 06:59 18:59 Intake Total 620 960 225 Output Total 425 585 170 Balance 195 375 55 Weight 58.8 kg Intake: IV 600 960 0 Sodium Chloride 0.9% 1, 960 0 000 ml @ 80 mls/hr IV . [id number] [facility] Rx#:[id number] Intake, IV Titration 20 Amount Lactated Ringers 1,000 ml 20 @ 0 mls/hr IV .[facility] Rx#:[id number] Oral 225 Output: Urine 425 585 170 Other: Voiding Method Indwelling Catheter Indwelling Catheter Indwelling Catheter - Exam Vital signs stable. Urine output good. Abdomen is soft and benign. Puncture sites so only mild ecchymosis. No swelling or abnormal pulsation. Bounding pedal pulses. Laboratory Last Values WBC 8.7 k/uL (3.8-10.6) 10/12/18 00:19 RBC 3.06 m/uL (3.80-5.40) L 10/12/18 00:19 Hgb 8.4 gm/dL (11.4-16.0) L 10/12/18 00:19 Hct 27.3 % (34.0-46.0) L 10/12/18 00:19 MCV 89.1 fL (80.0-100.0) 10/12/18 00:19 MCH 27.5 pg (25.0-35.0) 10/12/18 00:19 MCHC 30.9 g/dL (31.0-37.0) L 10/12/18 00:19 RDW 15.1 % (11.5-15.5) 10/12/18 00:19 Plt Count 330 k/uL (150-450) 10/12/18 00:19 Neutrophils % 82 % 10/11/18 14:12 Lymphocytes % 9 % 10/11/18 14:12 Monocytes % 5 % 10/11/18 14:12 Eosinophils % 3 % 10/11/18 14:12 Basophils % 0 % 10/11/18 14:12 Neutrophils # 5.8 k/uL (1.3-7.7) 10/11/18 14:12 Lymphocytes # 0.6 k/uL (1.0-4.8) L 10/11/18 14:12 Monocytes # 0.4 k/uL (0-1.0) 10/11/18 14:12 Eosinophils # 0.2 k/uL (0-0.7) 10/11/18 14:12 Basophils # 0.0 k/uL (0-0.2) 10/11/18 14:12 Hypochromasia Slight 10/12/18 00:19 Sodium 138 mmol/L (137-145) 10/12/18 05:28 Potassium 4.1 mmol/L (3.5-5.1) 10/12/18 05:28 Chloride 111 mmol/L (98-107) H 10/12/18 05:28 Carbon Dioxide 22 mmol/L (22-30) 10/12/18 05:28 Anion Gap 5 mmol/L 10/12/18 05:28 BUN 13 mg/dL (7-17) 10/12/18 05:28 Creatinine 0.53 mg/dL (0.52-1.04) 10/12/18 05:28 Est GFR (CKD-EPI)AfAm >90 (>60 ml/min/1.73 sqM) 10/12/18 05:28 Est GFR (CKD-EPI)NonAf >90 (>60 ml/min/1.73 sqM) 10/12/18 05:28 Glucose 113 mg/dL (74-99) H 10/12/18 05:28 POC Glucose (mg/dL) 145 mg/dL (75-99) H 10/12/18 06:57 POC Glu Realtime Captioner ID Joanie Mcintosh 10/12/18 06:57 Calcium 7.7 mg/dL (8.4-10.2) L 10/12/18 05:28 - Labs CBC & Chem 7: 10/12/18 00:19 10/12/18 05:28 Labs: Abnormal Lab Results - Last 24 Hours (Table) 10/11/18 10/11/18 10/11/18 Range/Units 12:34 14:12 15:09 RBC 3.17 L 2.80 L (3.80-5.40) m/uL Hgb 9.0 L D 7.8 L (11.4-16.0) gm/dL Hct 27.4 L 24.3 L (34.0-46.0) % MCHC (31.0-37.0) g/dL Lymphocytes # 0.8 L 0.6 L (1.0-4.8) k/uL Potassium 3.4 L (3.5-5.1) mmol/L Chloride 108 H (98-107) mmol/L Creatinine 0.49 L (0.52-1.04) mg/dL Glucose 152 H (74-99) mg/dL POC Glucose (mg/dL) (75-99) mg/dL Calcium 7.9 L (8.4-10.2) mg/dL 10/11/18 10/11/18 10/11/18 Range/Units 15:56 17:33 20:23 RBC (3.80-5.40) m/uL Hgb (11.4-16.0) gm/dL Hct (34.0-46.0) % MCHC (31.0-37.0) g/dL Lymphocytes # (1.0-4.8) k/uL Potassium (3.5-5.1) mmol/L Chloride (98-107) mmol/L Creatinine (0.52-1.04) mg/dL Glucose (74-99) mg/dL POC Glucose (mg/dL) 156 H 184 H 107 H (75-99) mg/dL Calcium (8.4-10.2) mg/dL 10/12/18 10/12/18 10/12/18 Range/Units 00:19 05:28 06:57 RBC 3.06 L (3.80-5.40) m/uL Hgb 8.4 L (11.4-16.0) gm/dL Hct 27.3 L (34.0-46.0) % MCHC 30.9 L (31.0-37.0) g/dL Lymphocytes # (1.0-4.8) k/uL Potassium (3.5-5.1) mmol/L Chloride 111 H (98-107) mmol/L Creatinine (0.52-1.04) mg/dL Glucose 113 H (74-99) mg/dL POC Glucose (mg/dL) 145 H (75-99) mg/dL Calcium 7.7 L (8.4-10.2) mg/dL Assessment and Plan (1) Atherosclerosis of huslia arteries of extremities with intermittent claudication, bilateral legs Current Visit: Yes Status: Acute Code(s): I70.213 - ATHSCL JENA ARTERIES OF EXTRM W INTRMT ANASTASIA, BI LEGS SNOMED Code(s): 530756188258423 Plan: Patient is doing very well first postop day. In view of her age and fragility we will keep her one more day. We will increase activities. EMELYN YANG. EMELYN Vale.
--- NOTE | 2018-10-12 11:08 | P.CNPUL ---
History of Present Illness Consult date: 10/12/18 Requesting physician: Cedric Smiley Reason for consult: other (medical management in the ICU) Chief complaint: status post endovascular repair of the aortoiliac occlusion with AF 2 aron History of present illness: this is a 77-year-old female with history of type 2 diabetes, severe peripheral artery disease involving aortoiliac vessels with bilateral iliac artery occlusion and disabling claudication. Patient underwent yesterday endovascular repair of the aortic iliac occlusion with AF 2 graft, bilateral external iliac artery balloon angioplasty with stent placement, bilateral femoral artery and left brachial artery access under ultrasound guidance, and aortogram with selective bilateral iliac artery angiograms. Her postoperative course was relatively uneventful. Patient was transferred to the intensive care unit, and I was asked to see her on consultation.clearly the patient had complex endovascular aortoiliac reconstruction, and today she seems to be doing quite well. She is asymptomatic, she has no pain in her legs, she has no cough, no wheezing, no shortness of breath, no nausea no vomiting no abdominal pain, no melena, no hematemesis, no dysuria and no frequency no urgency.all labs were reviewed today including basic metabolic profile and CBC which were both normal except for hemoglobin of 8.4 and that's expected after such surgery. Review of Systems 14 point review of systems were obtained, please refer to pertinent positives in HPI, otherwise remaining systems are negative. Past Medical History Past Medical History: COPD, Diabetes Mellitus, GERD/Reflux, Hyperlipidemia, Hypertension, Myocardial Infarction ([place]), Musculoskeletal Disorder, Osteoarthritis (OA), Vascular Disorder Additional Past Medical History / Comment(s): 2 HERNIATED DISCS , hx migraines, hx ulcer yrs ago, leaky bladder, uses walker Last Myocardial Infarction Date:: 08/2018 History of Any Multi-Drug Resistant Organisms: None Reported Past Surgical History: Cholecystectomy, Hysterectomy, Orthopedic Surgery, Tubal Ligation Additional Past Surgical History / Comment(s): right shoulder arthroscopy, left knee arthroscopy, surgery on fady middle fingers, ORIF left wrist, left oophorectomy, fady cataracts Past Anesthesia/Blood Transfusion Reactions: Motion Sickness, Postoperative Nausea & Vomiting (PONV) Smoking Status: Former smoker Additional Past Alcohol Use History / Comment(s): Patient was a smoker one pack per day for 30 years and quit in 2010. - Past Family History Mother Family Medical History: No Reported History Medications and Allergies Home Medications Medication Instructions Recorded Confirmed Type Acetaminophen-Codeine 300-30mg 1 tab PO Q8H PRN 01/12/17 10/11/18 History [Tylenol #3] Albuterol Inhaler [Ventolin Hfa 1 - 2 puff INHALATION RT-Q6H PRN 01/12/17 10/11/18 History Inhaler] Carvedilol [Coreg] 12.5 mg PO BID 01/12/17 10/11/18 History Fluticasone Nasal [place] [Flonase 1 spray EA NOSTRIL DAILY PRN 01/12/17 10/11/18 History Nasal [place]] Ranitidine HCl 150 mg PO HS 01/12/17 10/11/18 History amLODIPine BESYLATE [Norvasc] 2.5 mg PO BID 01/12/17 10/11/18 History metFORMIN HCL [Metformin HCl] 500 mg PO BID-W/MEALS 01/12/17 10/11/18 History sitaGLIPtin [Januvia] 100 mg PO DAILY PRN 01/12/17 10/11/18 History ALPRAZolam [Xanax] 0.25 mg PO BID PRN 02/28/17 10/11/18 History FLUoxetine HCL [PROzac] 10 mg PO BID 02/28/17 10/11/18 History Glimepiride [Amaryl] 1 mg PO AC-BRKFST 02/28/17 10/11/18 History Lisinopril [Zestril] 10 mg PO DAILY 02/28/17 10/11/18 History Aspirin [Adult Low Dose Aspirin EC] 81 mg PO DAILY 10/08/18 10/11/18 History Atorvastatin Calcium [Lipitor] 40 mg PO DAILY 10/08/18 10/11/18 History Allergies Allergy/AdvReac Type Severity Reaction Status Date / Time No Known Allergies Allergy Verified 10/11/18 14:32 Physical Exam Vitals: Vital Signs Temp Pulse Pulse Resp BP BP Pulse Ox 10/12/18 10:01 64 13 145/85 97 10/12/18 09:00 66 24 114/65 95 10/12/18 08:00 99.1 F 69 16 156/59 93 L 10/12/18 07:07 92 L 10/12/18 07:00 76 19 166/69 92 L 10/12/18 06:30 71 20 168/73 93 L 10/12/18 06:00 71 18 163/72 94 L 10/12/18 05:30 73 17 153/63 93 L 10/12/18 05:00 68 19 151/70 94 L 10/12/18 04:30 69 21 160/66 95 10/12/18 04:00 67 20 152/65 94 L 10/12/18 03:30 70 19 158/77 91 L 10/12/18 03:00 76 20 158/58 91 L 10/12/18 02:30 64 23 159/69 93 L 10/12/18 02:00 63 19 149/70 92 L 10/12/18 01:30 69 20 148/67 91 L 10/12/18 01:00 67 18 144/68 91 L 10/12/18 00:30 66 16 146/66 92 L 10/12/18 00:00 97.8 F 68 17 147/67 94 L 10/11/18 23:34 68 18 147/67 92 L 10/11/18 23:30 68 18 132/77 93 L 10/11/18 23:00 82 15 140/57 88 L 10/11/18 22:30 67 19 136/60 93 L 10/11/18 22:00 65 18 128/58 94 L 10/11/18 21:30 64 16 123/59 99 10/11/18 21:00 69 20 138/50 93 L 10/11/18 20:30 69 19 142/83 91 L 10/11/18 20:00 98.4 F 84 18 134/59 89 L 10/11/18 19:33 93 L 10/11/18 19:30 77 21 138/64 90 L 10/11/18 19:00 82 13 155/62 92 L 10/11/18 18:30 79 16 158/73 97 10/11/18 18:20 79 19 158/73 96 10/11/18 18:10 74 20 158/73 100 10/11/18 17:55 76 12 135/73 99 10/11/18 17:40 78 19 141/59 95 10/11/18 17:30 80 16 159/80 100 10/11/18 17:25 98.3 F 78 18 171/77 98 10/11/18 16:45 77 16 168/74 99 10/11/18 16:30 76 16 174/77 99 10/11/18 16:15 75 16 184/73 98 10/11/18 15:55 77 16 190/76 99 10/11/18 15:35 72 16 197/60 100 10/11/18 15:20 79 16 200/78 98 10/11/18 15:05 75 16 192/79 99 10/11/18 14:50 98 F 65 15 188/79 95 Intake and Output 10/11/18 10/12/18 10/12/18 22:59 06:59 14:59 Intake Total 890 640 225 Output Total 615 395 170 Balance 275 245 55 Intake: IV 870 640 0 Sodium Chloride 0.9% 1, 320 640 0 000 ml @ 80 mls/hr IV . [id number] [facility] Rx#:[id number] Intake, IV Titration 20 Amount Lactated Ringers 1,000 ml 20 @ 0 mls/hr IV .[facility] Rx#:[id number] Oral 225 Output: Urine 615 395 170 Other: Voiding Method Indwelling Catheter Indwelling Catheter Indwelling Catheter Weight 58.8 kg Physical Exam: Revealed a 77-year-old female in no distress. Very pleasant. Head: Atraumatic, normocephalic. HEENT:[Neck is supple.] [No neck masses.] [No thyromegaly.] [No JVD.] Chest: [Clear throughout, no crackles, no rhonchi, no wheezes.] Cardiac Exam: [Normal S1 and S2, no S3 gallop, no murmur.] Abdomen: [Soft, nontender, no megaly, no rebound, no guarding, normal bowel sounds.]puncture sites in the groin showed minimal ecchymosis, no swelling, Extremities: [No clubbing, no edema, no cyanosis.]good pulses bilaterally. Neurological Exam: [No focal neurologic deficit.] psychiatric: Normal mood affect and mental status examination Skin: No rashes. Lymphatics: No lymphadenopathy. Results - Laboratory Findings CBC and BMP: 10/12/18 00:19 10/12/18 05:28 Abnormal lab findings: Abnormal Labs 10/11/18 10/11/18 10/11/18 07:09 12:34 14:12 RBC 3.17 L 2.80 L Hgb 9.0 L D 7.8 L Hct 27.4 L 24.3 L MCHC Lymphocytes # 0.8 L 0.6 L Potassium Chloride Creatinine Glucose POC Glucose (mg/dL) 142 H Calcium 10/11/18 10/11/18 10/11/18 15:09 15:56 17:33 RBC Hgb Hct MCHC Lymphocytes # Potassium 3.4 L Chloride 108 H Creatinine 0.49 L Glucose 152 H POC Glucose (mg/dL) 156 H 184 H Calcium 7.9 L 10/11/18 10/12/18 10/12/18 20:23 00:19 05:28 RBC 3.06 L Hgb 8.4 L Hct 27.3 L MCHC 30.9 L Lymphocytes # Potassium Chloride 111 H Creatinine Glucose 113 H POC Glucose (mg/dL) 107 H Calcium 7.7 L 10/12/18 06:57 RBC Hgb Hct MCHC Lymphocytes # Potassium Chloride Creatinine Glucose POC Glucose (mg/dL) 145 H Calcium Assessment and Plan Assessment: impression: 1status post endovascular repair of aortoiliac occlusion with AF 2 grafts. Bilateral external iliac artery balloon angioplasty with stent placement. Bilateral femoral artery and left brachial artery access under ultrasound guidance. Aortogram with selective bilateral iliac artery angiograms. Postoperative day #1. 2 type 2 diabetes, patient is on metformin. 3 benign essential hypertension. 4 history of COPD 5severe peripheral vessel occlusive disease involving bilateral iliac vessels, with severe claudications. Recommendation:continue present treatment plan, patient is back on her usual medications including Norvasc, Lipitor, Coreg, Prozac, Amaryl, NovoLog insulin as per scale, and linagliptin.patient is also on Zestril, and she is doing great. Advised to continue incentive spirometry,she was advised to stay for another day as inpatient by vascular surgery. Possible discharge planning in the next 24 hours. We'll continue to follow. Ambulate the patient, and continue to monitor closely. Time with Patient: Greater than 30
[2018-10-12] MEDS: LINAGLIPTIN 5 MG TABLET PO SCH (11:48)
[2018-10-12 12:27] LABS: Glucose,Whole Blood 128 mg/dL (75-99)
--- NOTE | 2018-10-12 13:22 | P.CONS ---
History of Present Illness - Reason for Consult Consult date: 10/12/18 Medical management - History of Present Illness This is a 77-year-old female patient of Dr. Vela with past medical history of COPD, diabetes mellitus type 2, gastroesophageal reflux disease, hyperlipidemia, hypertension, myocardial infarction, osteoarthritis, migraine headaches. Patient also has severe peripheral vascular arterial disease experiencing worsening pain with ambulation unable to walk a block without severe pain in her thigh and calves. She was found to have severe aortic iliac occlusive disease and has been brought into hospital by Dr. Smiley status post endovascular repair of aortic iliac occlusion with graft, bilateral external iliac artery balloon angioplasty with stent placement yesterday and patient was subsequently admitted into the intensive care unit. Patient has not required vasopressor support. She has been afebrile, heart rate in the 60s and 70s, blood pressure 156/59, pulse ox 93% on 2 L nasal cannula. White count was 8.7, hemoglobin 8.4 which is stable, creatinine 0.53. Capillary blood glucose running between 107-145. There is a consult in place for Dr. Gamboa for intensive care management. The patient has been resumed on home medications except for metformin. Patient states that her toes are not cold for the first time that she can remember. She does have a strong pulse on the left and weak on the right. She states she did feel a little lightheaded as this was first time she got up this morning. She is currently in a recliner. She is currently off IV fluids. Discharge plan is to return home. Review of Systems All systems: negative Constitutional: Denies chills, Denies fatigue, Denies fever, Denies weight loss Eyes: denies blurred vision, denies pain Ears, nose, mouth and throat: Denies dysphagia, Denies headache, Denies sore throat Cardiovascular: Reports lightheadedness, Denies chest pain, Denies dyspnea on exertion, Denies edema, Denies shortness of breath, Denies syncope Respiratory: Denies cough, Denies cough with sputum, Denies dyspnea, Denies excessive sputum, Denies hemoptysis, Denies home oxygen, Denies wheezing Gastrointestinal: Denies abdominal pain, Denies diarrhea, Denies loss of appetite, Denies nausea, Denies vomiting Genitourinary: Denies dysuria, Denies hematuria Musculoskeletal: Denies frequent falls, Denies gait dysfunction, Denies muscle weakness, Denies myalgias Integumentary: Reports wounds, Denies pruritus, Denies rash Neurological: Denies aphasia, Denies change in mentation, Denies confusion, Denies gait dysfunction, Denies head injury, Denies headaches, Denies numbness, Denies seizures, Denies weakness Psychiatric: Denies anxiety, Denies depression Endocrine: Denies fatigue, Denies weight change Past Medical History Past Medical History: COPD, Diabetes Mellitus, GERD/Reflux, Hyperlipidemia, Hypertension, Myocardial Infarction ([place]), Musculoskeletal Disorder, Osteoarthritis (OA), Vascular Disorder Additional Past Medical History / Comment(s): 2 HERNIATED DISCS , hx migraines, hx ulcer yrs ago, leaky bladder, uses walker Last Myocardial Infarction Date:: 08/2018 History of Any Multi-Drug Resistant Organisms: None Reported Past Surgical History: Cholecystectomy, Hysterectomy, Orthopedic Surgery, Tubal Ligation Additional Past Surgical History / Comment(s): right shoulder arthroscopy, left knee arthroscopy, surgery on fady middle fingers, ORIF left wrist, left oophorectomy, fady cataracts Past Anesthesia/Blood Transfusion Reactions: Motion Sickness, Postoperative Nausea & Vomiting (PONV) Smoking Status: Former smoker Additional Past Alcohol Use History / Comment(s): Patient was a smoker one pack per day for 30 years and quit in 2010. She denies any marijuana or illicit drug use. She denies any alcohol use. She does not have oxygen at home but has a nebulizer she uses as needed. She was at home with her . - Past Family History Mother Family Medical History: No Reported History Additional Family Medical History / Comment(s): Mother in her 80s from a cerebral hemorrhage. Father Additional Family Medical History / Comment(s): Father in his 80s from COPD. Brother(s) Additional Family Medical History / Comment(s): Patient has 1 brother that in a drowning. Patient has a half-sister and she does not know her medical history. Patient has one daughter with diabetes and one with thyroid problems. Patient has 1 son with no major medical problems. Medications and Allergies Home Medications Medication Instructions Recorded Confirmed Type Acetaminophen-Codeine 300-30mg 1 tab PO Q8H PRN 01/12/17 10/11/18 History [Tylenol #3] Albuterol Inhaler [Ventolin Hfa 1 - 2 puff INHALATION RT-Q6H PRN 01/12/17 10/11/18 History Inhaler] Carvedilol [Coreg] 12.5 mg PO BID 01/12/17 10/11/18 History Fluticasone Nasal [place] [Flonase 1 spray EA NOSTRIL DAILY PRN 01/12/17 10/11/18 History Nasal [place]] Ranitidine HCl 150 mg PO HS 01/12/17 10/11/18 History amLODIPine BESYLATE [Norvasc] 2.5 mg PO BID 01/12/17 10/11/18 History metFORMIN HCL [Metformin HCl] 500 mg PO BID-W/MEALS 01/12/17 10/11/18 History sitaGLIPtin [Januvia] 100 mg PO DAILY PRN 01/12/17 10/11/18 History ALPRAZolam [Xanax] 0.25 mg PO BID PRN 02/28/17 10/11/18 History FLUoxetine HCL [PROzac] 10 mg PO BID 02/28/17 10/11/18 History Glimepiride [Amaryl] 1 mg PO AC-BRKFST 02/28/17 10/11/18 History Lisinopril [Zestril] 10 mg PO DAILY 02/28/17 10/11/18 History Aspirin [Adult Low Dose Aspirin EC] 81 mg PO DAILY 10/08/18 10/11/18 History Atorvastatin Calcium [Lipitor] 40 mg PO DAILY 10/08/18 10/11/18 History Allergies Allergy/AdvReac Type Severity Reaction Status Date / Time No Known Allergies Allergy Verified 10/11/18 14:32 Physical Exam Vitals: Vital Signs Temp Pulse Pulse Resp BP BP Pulse Ox 10/12/18 08:00 99.1 F 69 16 156/59 93 L 10/12/18 07:07 92 L 10/12/18 07:00 76 19 166/69 92 L 10/12/18 06:30 71 20 168/73 93 L 10/12/18 06:00 71 18 163/72 94 L 10/12/18 05:30 73 17 153/63 93 L 10/12/18 05:00 68 19 151/70 94 L 10/12/18 04:30 69 21 160/66 95 10/12/18 04:00 67 20 152/65 94 L 10/12/18 03:30 70 19 158/77 91 L 10/12/18 03:00 76 20 158/58 91 L 10/12/18 02:30 64 23 159/69 93 L 10/12/18 02:00 63 19 149/70 92 L 10/12/18 01:30 69 20 148/67 91 L 10/12/18 01:00 67 18 144/68 91 L 10/12/18 00:30 66 16 146/66 92 L 10/12/18 00:00 97.8 F 68 17 147/67 94 L 10/11/18 23:34 68 18 147/67 92 L 10/11/18 23:30 68 18 132/77 93 L 10/11/18 23:00 82 15 140/57 88 L 10/11/18 22:30 67 19 136/60 93 L 10/11/18 22:00 65 18 128/58 94 L 10/11/18 21:30 64 16 123/59 99 10/11/18 21:00 69 20 138/50 93 L 10/11/18 20:30 69 19 142/83 91 L 10/11/18 20:00 98.4 F 84 18 134/59 89 L 10/11/18 19:33 93 L 10/11/18 19:30 77 21 138/64 90 L 10/11/18 19:00 82 13 155/62 92 L 10/11/18 18:30 79 16 158/73 97 10/11/18 18:20 79 19 158/73 96 10/11/18 18:10 74 20 158/73 100 10/11/18 17:55 76 12 135/73 99 10/11/18 17:40 78 19 141/59 95 10/11/18 17:30 80 16 159/80 100 10/11/18 17:25 98.3 F 78 18 171/77 98 10/11/18 16:45 77 16 168/74 99 10/11/18 16:30 76 16 174/77 99 10/11/18 16:15 75 16 184/73 98 10/11/18 15:55 77 16 190/76 99 10/11/18 15:35 72 16 197/60 100 10/11/18 15:20 79 16 200/78 98 10/11/18 15:05 75 16 192/79 99 10/11/18 14:50 98 F 65 15 188/79 95 Intake and Output 10/11/18 10/12/18 10/12/18 22:59 06:59 14:59 Intake Total 890 640 225 Output Total 615 395 95 Balance 275 245 130 Intake: IV 870 640 0 Sodium Chloride 0.9% 1, 320 640 0 000 ml @ 80 mls/hr IV . [id number] [facility] Rx#:[id number] Intake, IV Titration 20 Amount Lactated Ringers 1,000 ml 20 @ 0 mls/hr IV .[facility] Rx#:[id number] Oral 225 Output: Urine 615 395 95 Other: Voiding Method Indwelling Catheter Indwelling Catheter Indwelling Catheter Weight 58.8 kg Gen: This is a 77-year-old female. She is resting in ICU in recliner and appears to be comfortable and in no acute distress. HEENT: Head is atraumatic, normocephalic. Pupils equal, round. Sclerae is anicteric. NECK: Supple. No JVD. No lymphadenopathy. No thyromegaly. LUNGS: Clear to auscultation. No wheezes or rhonchi. No intercostal retractions. No accessory muscle usage HEART: Regular rate and rhythm. No murmur. patient monitor is a sinus rhythm. ABDOMEN: Soft. Bowel sounds are present. No masses. No tenderness. Vale catheter in place draining clear suad urine. EXTREMITIES: No pedal edema. No calf tenderness. +2 pedal edema on the left and weak on the right. NEUROLOGICAL: Patient is awake, alert and oriented x3. Cranial nerves 2 through 12 are grossly intact. Results CBC & Chem 7: 10/12/18 00:19 10/12/18 05:28 Labs: Abnormal Lab Results - Last 24 Hours (Table) 10/11/18 10/11/18 10/11/18 Range/Units 12:34 14:12 15:09 RBC 3.17 L 2.80 L (3.80-5.40) m/uL Hgb 9.0 L D 7.8 L (11.4-16.0) gm/dL Hct 27.4 L 24.3 L (34.0-46.0) % MCHC (31.0-37.0) g/dL Lymphocytes # 0.8 L 0.6 L (1.0-4.8) k/uL Potassium 3.4 L (3.5-5.1) mmol/L Chloride 108 H (98-107) mmol/L Creatinine 0.49 L (0.52-1.04) mg/dL Glucose 152 H (74-99) mg/dL POC Glucose (mg/dL) (75-99) mg/dL Calcium 7.9 L (8.4-10.2) mg/dL 10/11/18 10/11/18 10/11/18 Range/Units 15:56 17:33 20:23 RBC (3.80-5.40) m/uL Hgb (11.4-16.0) gm/dL Hct (34.0-46.0) % MCHC (31.0-37.0) g/dL Lymphocytes # (1.0-4.8) k/uL Potassium (3.5-5.1) mmol/L Chloride (98-107) mmol/L Creatinine (0.52-1.04) mg/dL Glucose (74-99) mg/dL POC Glucose (mg/dL) 156 H 184 H 107 H (75-99) mg/dL Calcium (8.4-10.2) mg/dL 10/12/18 10/12/18 10/12/18 Range/Units 00:19 05:28 06:57 RBC 3.06 L (3.80-5.40) m/uL Hgb 8.4 L (11.4-16.0) gm/dL Hct 27.3 L (34.0-46.0) % MCHC 30.9 L (31.0-37.0) g/dL Lymphocytes # (1.0-4.8) k/uL Potassium (3.5-5.1) mmol/L Chloride 111 H (98-107) mmol/L Creatinine (0.52-1.04) mg/dL Glucose 113 H (74-99) mg/dL POC Glucose (mg/dL) 145 H (75-99) mg/dL Calcium 7.7 L (8.4-10.2) mg/dL Assessment and Plan Plan: 1. Severe aortic iliac occlusive disease status post endovascular repair of aortic iliac occlusion with graft, bilateral external iliac artery balloon angioplasty with stent placement. Continue activity, pain control per Dr. Smiley. Dr. Gamboa is on consult for intensive care management. Continue aspirin 81 mg daily. 2. Hypertension. Continue Norvasc 2.5 mg twice daily, Coreg 12.5 mg twice daily, lisinopril 10 mg daily. 3. Diabetes mellitus type 2. Continue glimepiride 1 mg with breakfast, Tradjenta for Januvia, metformin on hold. Continue NovoLog scale before meals and at bedtime. 4. Hyperlipidemia. Continue Lipitor 40 mg daily. 5. History of myocardial infarction. Continue aspirin, Lipitor, Coreg. 6. Gastroesophageal reflux disease. Continue Pepcid 20 mg at bedtime. 7. COPD stable without exacerbation. 8. Recurrent depression and generalized anxiety disorder. Continue Prozac 10 mg twice daily and Xanax 0.25 mg every 6 hours as needed. 9. Remote history of tobacco use. Patient quit smoking in 2010. 10. DVT prophylaxis. SCDs Discharge plan: Most likely return home Impression and plan of care have been directed as dictated by the signing physician. Velma Ren nurse practitioner acting as scribe for signing physician.
[2018-10-12 14:30] LABS: Hemoglobin A1C 6.9 % (4.0-6.0)
[2018-10-12] MEDS ORDERED: ALBUTEROL NEBULIZED 2.5 MG/3 ML INHALATION PRN (16:44)
[2018-10-12 17:12] LABS: Glucose,Whole Blood 91 mg/dL (75-99)
[2018-10-12] MEDS: FAMOTIDINE 20 MG TAB PO SCH (20:55)
[2018-10-12 20:56] LABS: Glucose,Whole Blood 145 mg/dL (75-99)
[2018-10-12] MEDS ORDERED: amLODIPine 5 MG TAB PO STA (22:19)
[2018-10-13] MEDS: LACTATED RINGERS 1,000 ML IV SCH (05:42)
[2018-10-13 06:27] LABS: Anion Gap 5 mmol/L; Blood Urea Nitrogen 12 mg/dL (7-17); Calcium 7.9 mg/dL (8.4-10.2); Carbon Dioxide 23 mmol/L (22-30); Chloride 108 mmol/L (98-107); Glucose 91 mg/dL (74-99); Magnesium 1.1 mg/dL (1.6-2.3); Phosphorus 2.6 mg/dL (2.5-4.5); Sodium 136 mmol/L (137-145)
[2018-10-13 06:33] LABS: HCT 26.8 % (34.0-46.0); HGB 8.4 gm/dL (11.4-16.0); Hypochromasia Moderate; MCH 27.6 pg (25.0-35.0); MCHC 31.2 g/dL (31.0-37.0); MCV 88.3 fL (80.0-100.0); Mean Platelet Volume 6.9; Platelet Count 354 k/uL (150-450); RBC 3.03 m/uL (3.80-5.40); RDW 15.2 % (11.5-15.5); WBC 10.1 k/uL (3.8-10.6)
[2018-10-13] MEDS ORDERED: Magnesium Replacement Protocol 1 EACH MISC MISCELLANE PRN (06:42)
[2018-10-13] MEDS: MAGNESIUM SULFATE-D5W PMX 1 GM in DEXTROSE/WATER 1 100ML.BAG IVPB SCH ×3 (06:55→11:37)
[2018-10-13] MEDS: GLIMEPIRIDE 1 MG TAB PO SCH (06:56)
[2018-10-13] MEDS: INSULIN ASPART (NovoLOG) 100 UNIT/ML VIAL SQ SCH ×2 (06:56→12:15)
[2018-10-13] MEDS: CARVEDILOL 12.5 MG TAB PO SCH ×2 (06:56→18:35)
[2018-10-13 07:05] LABS: Glucose,Whole Blood 125 mg/dL (75-99)
[2018-10-13] MEDS ORDERED: amLODIPine 5 MG TAB PO SCH (09:00)
--- NOTE | 2018-10-13 09:25 | P.PN ---
Subjective Progress Note Date: 10/13/18 Principal diagnosis: Aortoiliac occlusive disease She is evaluated today postop day #2 status post graft repair of aortoiliac occlusive disease. The patient denies any pain and indicates that her legs feel markedly improved. Evaluation revealed the puncture wounds to be clean, dry and are healing in an unremarkable way. Femoral, popliteal, dorsalis pedis and posterior tibial pulses are intact bilaterally. There is no cyanosis or edema. Toes are freely movable and nontender Impression: Satisfactory progress from a surgical standpoint. Plan: #1 patient may shower over her wounds. #2 patient may be up ad nusrat. #3 surgically stable for discharge once cleared by all other treating physicians. Objective - Vital Signs Vital signs: Vital Signs Temp 98.4 F 10/13/18 04:00 Pulse 71 10/13/18 07:00 Resp 23 10/13/18 07:00 BP 141/74 10/13/18 07:00 Pulse Ox 94 L 10/13/18 07:00 Intake & Output 10/12/18 10/13/18 10/13/18 17:59 06:59 18:59 Intake Total 50 Output Total 60 Balance -10 Weight Intake: IV 50 Sodium Chloride 0.9% 1, 50 000 ml @ 50 mls/hr IV . Q20H [facility] Rx#:[id number] Sodium Chloride 0.9% 1, 000 ml @ 80 mls/hr IV . [id number] [facility] Rx#:[id number] Intake, IV Titration Amount Sodium Chloride 0.9% 1, 000 ml @ 50 mls/hr IV . Q20H [facility] Rx#:[id number] Oral Output: Urine 60 Other: Voiding Method - Labs CBC & Chem 7: 10/13/18 04:58 10/13/18 04:58 Labs: Abnormal Lab Results - Last 24 Hours (Table) 10/11/18 10/12/18 10/12/18 Range/Units 12:34 11:50 20:41 RBC (3.80-5.40) m/uL Hgb (11.4-16.0) gm/dL Hct (34.0-46.0) % Sodium (137-145) mmol/L Chloride (98-107) mmol/L POC Glucose (mg/dL) 128 H 145 H (75-99) mg/dL Hemoglobin A1c 6.9 H (4.0-6.0) % Calcium (8.4-10.2) mg/dL Magnesium (1.6-2.3) mg/dL 10/13/18 10/13/18 10/13/18 Range/Units 04:58 04:58 06:52 RBC 3.03 L (3.80-5.40) m/uL Hgb 8.4 L (11.4-16.0) gm/dL Hct 26.8 L (34.0-46.0) % Sodium 136 L (137-145) mmol/L Chloride 108 H (98-107) mmol/L POC Glucose (mg/dL) 125 H (75-99) mg/dL Hemoglobin A1c (4.0-6.0) % Calcium 7.9 L (8.4-10.2) mg/dL Magnesium 1.1 L (1.6-2.3) mg/dL
[2018-10-13] MEDS: ALPRAZolam 0.25 MG TAB PO PRN ×2 (10:06→15:54)
[2018-10-13] MEDS: ASPIRIN 81 MG PO SCH (10:06)
[2018-10-13] MEDS: ATORVASTATIN 40 MG TAB PO SCH (10:06)
[2018-10-13] MEDS: FLUoxetine HCL 10 MG CAP PO SCH (10:06)
[2018-10-13] MEDS: LINAGLIPTIN 5 MG TABLET PO SCH (10:06)
[2018-10-13] MEDS: LISINOPRIL 10 MG TAB PO SCH (10:07)
[2018-10-13 10:23] VITALS: TEMP 97.9
[2018-10-13 12:27] LABS: Glucose,Whole Blood 138 mg/dL (75-99)
--- NOTE | 2018-10-13 12:29 | P.PN ---
Subjective Progress Note Date: 10/13/18 Principal diagnosis: Status post graft repair of aortoiliac occlusive disease. Postoperative day #2 this is a 77-year-old female with history of type 2 diabetes, severe peripheral artery disease involving aortoiliac vessels with bilateral iliac artery occlusion and disabling claudication. Patient underwent yesterday endovascular repair of the aortic iliac occlusion with AF 2 graft, bilateral external iliac artery balloon angioplasty with stent placement, bilateral femoral artery and left brachial artery access under ultrasound guidance, and aortogram with selective bilateral iliac artery angiograms. Her postoperative course was relatively uneventful. Patient was transferred to the intensive care unit, and I was asked to see her on consultation.clearly the patient had complex endovascular aortoiliac reconstruction, and today she seems to be doing quite well. She is asymptomatic, she has no pain in her legs, she has no cough, no wheezing, no shortness of breath, no nausea no vomiting no abdominal pain, no melena, no hematemesis, no dysuria and no frequency no urgency.all labs were reviewed today including basic metabolic profile and CBC which were both normal except for hemoglobin of 8.4 and that's expected after such surgery. Patient was reevaluated today on 10/13/2018, patient is doing well, relatively asymptomatic, no issues overnight except her blood pressure was noted to be elevated, and she was given Norvasc at 5 mg daily instead of 2.5. Today her blood pressure is stable, asymptomatic, no cough no wheezing no shortness of breath no chest pain, no pain or color changes in the feet bilaterally. Patient is being evaluated by vascular surgery, and I believe she is going to be discharged home today. Labs were reviewed including CBC and basic metabolic profile. Hemoglobin is 8.4 Objective - Vital Signs Vital signs: Vital Signs Temp 97.9 F 10/13/18 08:00 Pulse 63 10/13/18 11:00 Resp 24 10/13/18 11:00 BP 133/83 10/13/18 11:00 Pulse Ox 92 L 10/13/18 10:00 Intake & Output 10/12/18 10/13/18 10/13/18 17:59 06:59 18:59 Intake Total 350 Output Total 420 Balance -70 Weight Intake: IV 150 Sodium Chloride 0.9% 1, 150 000 ml @ 50 mls/hr IV . Q20H [facility] Rx#:[id number] Sodium Chloride 0.9% 1, 000 ml @ 80 mls/hr IV . [id number] [facility] Rx#:[id number] Intake, IV Titration 200 Amount Magnesium Sulfate-D5w Pmx 200 1 gm In Dextrose/Water 1 100ml.bag @ 100 mls/hr IVPB Q1H [facility] Rx#: [id number] Sodium Chloride 0.9% 1, 000 ml @ 50 mls/hr IV . Q20H [facility] Rx#:[id number] Oral Output: Urine 420 Other: Voiding Method Indwelling Catheter - Exam Physical Exam: Revealed a 77-year-old female in no distress. Head: Atraumatic, normocephalic. HEENT:[Neck is supple.] [No neck masses.] [No thyromegaly.] [No JVD.] Chest: [Clear throughout, no crackles, no rhonchi, no wheezes.] Cardiac Exam: [Normal S1 and S2, no S3 gallop, no murmur.] Abdomen: [Soft, nontender, no megaly, no rebound, no guarding, normal bowel sounds.]puncture sites in the groin showed minimal ecchymosis, no swelling, Extremities: [No clubbing, no edema, no cyanosis.]good pulses bilaterally. Neurological Exam: [No focal neurologic deficit.] psychiatric: Normal mood affect and mental status examination Skin: No rashes. - Labs CBC & Chem 7: 10/13/18 04:58 10/13/18 04:58 Labs: Abnormal Lab Results - Last 24 Hours (Table) 10/11/18 10/12/18 10/12/18 Range/Units 12:34 11:50 20:41 RBC (3.80-5.40) m/uL Hgb (11.4-16.0) gm/dL Hct (34.0-46.0) % Sodium (137-145) mmol/L Chloride (98-107) mmol/L POC Glucose (mg/dL) 128 H 145 H (75-99) mg/dL Hemoglobin A1c 6.9 H (4.0-6.0) % Calcium (8.4-10.2) mg/dL Magnesium (1.6-2.3) mg/dL 10/13/18 10/13/18 10/13/18 Range/Units 04:58 04:58 06:52 RBC 3.03 L (3.80-5.40) m/uL Hgb 8.4 L (11.4-16.0) gm/dL Hct 26.8 L (34.0-46.0) % Sodium 136 L (137-145) mmol/L Chloride 108 H (98-107) mmol/L POC Glucose (mg/dL) 125 H (75-99) mg/dL Hemoglobin A1c (4.0-6.0) % Calcium 7.9 L (8.4-10.2) mg/dL Magnesium 1.1 L (1.6-2.3) mg/dL Assessment and Plan Assessment: impression: 1status post endovascular repair of aortoiliac occlusion with AF 2 grafts. Bilateral external iliac artery balloon angioplasty with stent placement. Bilateral femoral artery and left brachial artery access under ultrasound guid ance. Aortogram with selective bilateral iliac artery angiograms. Postoperative day #2 2 type 2 diabetes, patient is on metformin. 3 benign essential hypertension. 4 history of COPD 5severe peripheral vessel occlusive disease involving bilateral iliac vessels, with severe claudications. Recommendation: Patient is to go back on her usual home meds, other meds will be added by vascular surgery for her peripheral vessel occlusive disease, patient is cleared from my perspective to be discharged home today. Patient is to follow-up with her primary care physician regarding her medical problems including diabetes hypertension COPD. Time with Patient: Less than 30
--- NOTE | 2018-10-13 13:30 | P.PN ---
Subjective This is a 77-year-old female patient of Dr. Vela with past medical history of COPD, diabetes mellitus type 2, gastroesophageal reflux disease, hyperlipidemia, hypertension, myocardial infarction, osteoarthritis, migraine headaches. Patient also has severe peripheral vascular arterial disease experiencing worsening pain with ambulation unable to walk a block without severe pain in her thigh and calves. She was found to have severe aortic iliac occlusive disease and has been brought into hospital by Dr. Smiley status post endovascular repair of aortic iliac occlusion with graft, bilateral external iliac artery balloon angioplasty with stent placement yesterday and patient was subsequently admitted into the intensive care unit. Patient has not required vasopressor support. She has been afebrile, heart rate in the 60s and 70s, blood pressure 156/59, pulse ox 93% on 2 L nasal cannula. White count was 8.7, hemoglobin 8.4 which is stable, creatinine 0.53. Capillary blood glucose running between 107-145. There is a consult in place for Dr. Gamboa for intensive care management. The patient has been resumed on home medications except for metformin. Patient states that her toes are not cold for the first time that she can remember. She does have a strong pulse on the left and weak on the right. She states she did feel a little lightheaded as this was first time she got up this morning. She is currently in a recliner. She is currently off IV fluids. Discharge plan is to return home. 10/13: Patient examined today on afternoon rounds. She is doing status post endovascular repair of the aortic iliac occlusion with graft, bilateral external iliac artery balloon angioplasty with stent placement. She remains afebrile, blood pressure 132/56, pulse ox 92% on room air, heart rate 64. White count 10.1, hemoglobin 8.4, which is stable creatinine 0.58. Capillary blood glucose control. Femoral, popliteal, dorsal pedis and posterior tibial pulses are palpable bilaterally. Will obtain walking pulse ox if she remains above 89% she'll be discharged home, if she falls below 89%, will order home oxygen and outpatient consult with pulmonology. Objective - Vital Signs Vital signs: Vital Signs Temp 97.9 F 10/13/18 08:00 Pulse 64 10/13/18 10:00 Resp 20 10/13/18 10:00 BP 132/56 10/13/18 10:00 Pulse Ox 92 L 10/13/18 10:00 Intake & Output 10/12/18 10/13/18 10/13/18 17:59 06:59 18:59 Intake Total 250 Output Total 270 Balance -20 Weight Intake: IV 150 Sodium Chloride 0.9% 1, 150 000 ml @ 50 mls/hr IV . Q20H [facility] Rx#:[id number] Sodium Chloride 0.9% 1, 000 ml @ 80 mls/hr IV . [id number] [facility] Rx#:[id number] Intake, IV Titration 100 Amount Magnesium Sulfate-D5w Pmx 100 1 gm In Dextrose/Water 1 100ml.bag @ 100 mls/hr IVPB Q1H [facility] Rx#: [id number] Sodium Chloride 0.9% 1, 000 ml @ 50 mls/hr IV . Q20H [facility] Rx#:[id number] Oral Output: Urine 270 Other: Voiding Method - Constitutional General appearance: Present: average body habitus, cooperative, no acute distress - EENT Eyes: Present: EOMI, PERRLA, normal appearance ENT: Present: hearing grossly normal, normal oropharynx - Neck Neck: Present: normal ROM. Absent: lymphadenopathy, stridor, thyromegaly Thyroid: bilateral: normal size, negative: enlarged, firm, nodule - Respiratory Respiratory: right: CTA, negative: diminished, dullness, rales, rhonchi, wheezing - Cardiovascular Rhythm: regular Heart sounds: normal: S1, S2 - Peripheral pulses popliteal Peripheral Pulses Comment(s): No clubbing, no edema, no cyanosis, good pulses bilaterally - Gastrointestinal General gastrointestinal: Present: normal bowel sounds, soft. Absent: distended, organomegaly, tenderness - Neurologic Neurologic: Present: CNII-XII intact. Absent: focal deficits - Musculoskeletal Musculoskeletal: Present: gait normal, strength equal bilaterally - Psychiatric Psychiatric: Present: A&O x's 3, intact judgment & insight - Labs CBC & Chem 7: 10/13/18 04:58 10/13/18 04:58 Labs: Abnormal Lab Results - Last 24 Hours (Table) 10/11/18 10/12/18 10/12/18 Range/Units 12:34 11:50 20:41 RBC (3.80-5.40) m/uL Hgb (11.4-16.0) gm/dL Hct (34.0-46.0) % Sodium (137-145) mmol/L Chloride (98-107) mmol/L POC Glucose (mg/dL) 128 H 145 H (75-99) mg/dL Hemoglobin A1c 6.9 H (4.0-6.0) % Calcium (8.4-10.2) mg/dL Magnesium (1.6-2.3) mg/dL 10/13/18 10/13/18 10/13/18 Range/Units 04:58 04:58 06:52 RBC 3.03 L (3.80-5.40) m/uL Hgb 8.4 L (11.4-16.0) gm/dL Hct 26.8 L (34.0-46.0) % Sodium 136 L (137-145) mmol/L Chloride 108 H (98-107) mmol/L POC Glucose (mg/dL) 125 H (75-99) mg/dL Hemoglobin A1c (4.0-6.0) % Calcium 7.9 L (8.4-10.2) mg/dL Magnesium 1.1 L (1.6-2.3) mg/dL Assessment and Plan Plan: 1. Severe aortic iliac occlusive disease status post endovascular repair of aortic iliac occlusion with graft, bilateral external iliac artery balloon angioplasty with stent placement. Continue activity, continue aspirin 81 mg daily and statin. 2. Hypertension. Well controlled, continue Norvasc 2.5 mg twice daily, Coreg 12.5 mg twice daily, lisinopril 10 mg daily. 3. Diabetes mellitus type 2. Continue glimepiride 1 mg with breakfast, Tradjenta for Januvia, metformin on hold. Continue NovoLog scale before meals and at bedtime. Capillary glucose have been well controlled. 4. Hyperlipidemia. Continue Lipitor 40 mg daily. 5. History of myocardial infarction. Continue aspirin, Lipitor, Coreg. 6. Gastroesophageal reflux disease. Continue Pepcid 20 mg at bedtime. 7. COPD stable without exacerbation. stable 8. Recurrent depression and generalized anxiety disorder. Continue Prozac 10 mg twice daily and Xanax 0.25 mg every 6 hours as needed. 9. Remote history of tobacco use. Patient quit smoking in 2010. 10. DVT prophylaxis. SCDs Discharge plan: return home The above impression and plan of care have been discussed and directed by sig fatimah physician. Minna Simeon nurse practitioner acting as scribe for signing physician.
[2018-10-13 14:02] VITALS: PULSE 73
[2018-10-13 17:32] LABS: Glucose,Whole Blood 106 mg/dL (75-99)
[2018-10-13 20:25] VITALS: BP 157/92; RESP 20
== END 2018-10-13 20:30 | disposition home or self-care (01) | DRG 271 ==
LOC: 2ORMAIN 06:21 → 2SICU 14:10
PROVIDERS: ADMIT Surgery; ATTEND Surgery
PROC: 04VH3DZ Restriction of Right External Iliac Artery with Intraluminal Device, Percutaneous Approach (ICD-10-PCS; principal; 2018-10-11 07:30)
PROC: 047H3DZ Dilation of Right External Iliac Artery with Intraluminal Device, Percutaneous Approach (ICD-10-PCS; principal; 2018-10-11 07:30)
PROC: 04VJ3DZ Restriction of Left External Iliac Artery with Intraluminal Device, Percutaneous Approach (ICD-10-PCS; principal; 2018-10-11 07:30)
PROC: B41D1ZZ Fluoroscopy of Aorta and Bilateral Lower Extremity Arteries using Low Osmolar Contrast (ICD-10-PCS; principal; 2018-10-11 07:30)
PROC: 4A033B1 Measurement of Arterial Pressure, Peripheral, Percutaneous Approach (ICD-10-PCS; principal; 2018-10-11 07:30)
PROC: 047J3DZ Dilation of Left External Iliac Artery with Intraluminal Device, Percutaneous Approach (ICD-10-PCS; principal; 2018-10-11 07:30)
DX: I74.09 Other arterial embolism and thrombosis of abdominal aorta (principal); F33.9 Major depressive disorder, recurrent, unspecified; I70.213 Atherosclerosis of native arteries of extremities with intermittent claudication, bilateral legs; E11.51 Type 2 diabetes mellitus with diabetic peripheral angiopathy without gangrene; J44.9 Chronic obstructive pulmonary disease, unspecified; K21.9 Gastro-esophageal reflux disease without esophagitis; E78.5 Hyperlipidemia, unspecified; I10 Essential (primary) hypertension; I25.2 Old myocardial infarction; F41.1 Generalized anxiety disorder; R26.2 Difficulty in walking, not elsewhere classified; M19.90 Unspecified osteoarthritis, unspecified site; G43.909 Migraine, unspecified, not intractable, without status migrainosus; Z79.82 Long term (current) use of aspirin; Z79.84 Long term (current) use of oral hypoglycemic drugs; Z79.899 Other long term (current) drug therapy; Z90.49 Acquired absence of other specified parts of digestive tract; Z90.710 Acquired absence of both cervix and uterus; Z98.51 Tubal ligation status; Z90.721 Acquired absence of ovaries, unilateral; Z98.42 Cataract extraction status, left eye; Z98.41 Cataract extraction status, right eye; Z87.891 Personal history of nicotine dependence; Z82.5 Family history of asthma and other chronic lower respiratory diseases; Z83.3 Family history of diabetes mellitus
CPT/HCPCS: 37223; 37236; 80048; 82565; 83036; 83735; 84100; 84132; 85025; 85027; 85347

== ENCOUNTER 2018-10-16 03:52 | Emergency (ER) | payer MEDICARE ==
[2018-10-16] MEDS ORDERED: predniSONE 20 MG TAB PO STA (04:06)
[2018-10-16] MEDS ORDERED: IPRATROPIUM-ALBUTEROL 3 ML NEB INHALATION STA (04:06)
--- NOTE | 2018-10-16 04:06 | ED ---
SOB HPI - General Chief Complaint: Shortness of Breath Stated Complaint: Difficulty Breathing Time Seen by Provider: 10/16/18 03:54 Source: patient Mode of arrival: EMS Limitations: no limitations - History of Present Illness Initial Comments: Katy is a pleasant 77-year-old female presents the emergency department today for evaluation of wheezing and shortness of breath. Patient was recently admitted to our hospital for lower extremity stenting procedure. During that hospitalization and was noted the patient was hypoxic and she was subsequently discharged home on supplemental oxygen for treatment of her advanced COPD. Patient reports she been doing well at home days however last night she felt as though she couldn't catch her breath. Patient states that she was wheezing throughout the night. She did use her Spiriva inhaler 1 time, she did not do any breathing treatments. This morning she decided to call the ambulance for transport back to the hospital for reevaluation. Upon arrival pain feels patient reported she was feeling much better and she declined a breathing treatment in route to the hospital. Patient denies any chest pain or palpitation she denies any recent fevers, chills, nausea or vomiting. - Related Data Home Medications Medication Instructions Recorded Confirmed Acetaminophen-Codeine 300-30mg 1 tab PO Q8H PRN 01/12/17 10/11/18 [Tylenol w/codeine #3] Albuterol Inhaler [Ventolin Hfa 1 - 2 puff INHALATION RT-Q6H PRN 01/12/17 10/11/18 Inhaler] Carvedilol [Coreg*] 12.5 mg PO BID 01/12/17 10/11/18 Fluticasone Nasal [place] [Flonase 1 spray EA NOSTRIL DAILY PRN 01/12/17 10/11/18 Nasal [place]] Ranitidine HCl 150 mg PO HS 01/12/17 10/11/18 amLODIPine BESYLATE [Norvasc] 2.5 mg PO BID 01/12/17 10/11/18 metFORMIN HCL [Metformin HCl] 500 mg PO BID-W/MEALS 01/12/17 10/11/18 sitaGLIPtin [Januvia] 100 mg PO DAILY PRN 01/12/17 10/11/18 ALPRAZolam [Xanax] 0.25 mg PO BID PRN 02/28/17 10/11/18 FLUoxetine HCL [PROzac] 10 mg PO BID 02/28/17 10/11/18 Glimepiride [Amaryl] 1 mg PO AC-BRKFST 02/28/17 10/11/18 Lisinopril [Zestril] 10 mg PO DAILY 02/28/17 10/11/18 Aspirin [Adult Low Dose Aspirin EC] 81 mg PO DAILY 10/08/18 10/11/18 Atorvastatin Calcium [Lipitor] 40 mg PO DAILY 10/08/18 10/11/18 Previous Rx's Medication Instructions Recorded Albuterol Nebulized (Conc) 2.5 mg INHALATION Q4H PRN #30 neb 10/16/18 [Ventolin Nebulized (Conc)] Ipratropium-Albuterol Nebulize 3 ml INHALATION Q4H PRN #30 neb 10/16/18 [Duoneb 0.5 mg-3 mg/3 ml Soln] Allergies Allergy/AdvReac Type Severity Reaction Status Date / Time No Known Allergies Allergy Verified 10/11/18 14:32 Review of Systems ROS Statement: Those systems with pertinent positive or pertinent negative responses have been documented in the HPI. ROS Other: All systems not noted in ROS Statement are negative. Past Medical History Past Medical History: COPD, Diabetes Mellitus, GERD/Reflux, Hypertension, Mu sculoskeletal Disorder, Osteoarthritis (OA) Additional Past Medical History / Comment(s): VARICOSE VEINS, COLITIS, HERNIATED DISCS , TORN LEFT ROTATOR CUFF. Last Myocardial Infarction Date:: 08/2018 History of Any Multi-Drug Resistant Organisms: None Reported Past Surgical History: Hysterectomy, Orthopedic Surgery, Tubal Ligation Additional Past Surgical History / Comment(s): right shoulder arthroscopy,knee arthroscopy, finger surg, ORIF left wrist, PARTIAL HYSTERECTOMY THEN LEFT OVARY REMOVED. Past Anesthesia/Blood Transfusion Reactions: Motion Sickness, Postoperative Nausea & Vomiting (PONV) Past Psychological History: Anxiety, Depression Smoking Status: Former smoker - Past Family History Mother Family Medical History: No Reported History Additional Family Medical History / Comment(s): Mother in her 80s from a cerebral hemorrhage. Father Additional Family Medical History / Comment(s): Father in his 80s from COPD. Brother(s) Additional Family Medical History / Comment(s): Patient has 1 brother that in a drowning. Patient has a half-sister and she does not know her medical history. Patient has one daughter with diabetes and one with thyroid problems. Patient has 1 son with no major medical problems. General Exam - General Exam Comments Initial Comments: Physical Exam GENERAL: Chronically ill-appearing, pale elderly female HENT: Normocephalic, Atraumatic. EYES: PERRL, EOMI PULMONARY: Mild expiratory wheezing CARDIOVASCULAR: There is a regular rate and rhythm without any murmurs gallops or rubs. ABDOMEN: Soft and nontender with normal bowel sounds. SKIN: Skin is clear with no lesions or rashes and otherwise unremarkable. : Deferred NEUROLOGIC: Patient is alert and oriented x3. Moving all extremities spontaneously MUSCULOSKELETAL: Normal extremities with adequate strength and full range of motion. No lower extremity swelling or edema. No calf tenderness. PSYCHIATRIC: Normal psychiatric evaluation. Limitations: no limitations Limitations: no limitations Course Vital Signs 10/16/18 10/16/18 10/16/18 03:55 04:44 04:54 Temperature 98.2 F Pulse Rate 65 64 64 Respiratory 15 Rate Blood Pressure 169/73 O2 Sat by Pulse 95 Oximetry 10/16/18 04:57 Temperature Pulse Rate 68 Respiratory 16 Rate Blood Pressure 186/60 O2 Sat by Pulse 93 L Oximetry Medical Decision Making - Medical Decision Making Patient was seen and evaluated history was obtained from the patient, at bedside and review of medical record and extend 77-year-old female with advanced COPD on supplemental oxygen who presents for wheezing and shortness of breath without any chest pain or palpitations Patient did not have any breathing treatments prior to arrival Basic labs, chest x-ray, EKG and breathing treatments steroids were ordered Labs with chronic anemia consistent with patient's recent surgical intervention. Otherwise labs at baseline. X-ray consistent with COPD but no acute findings EKG is nonischemic Patient was reevaluated she reports complete resolution of her symptoms after breathing treatment Patient states she doesn't have any nebulizer solution at home, prescription will be provided excellent at this time patient family are comfortable with the plan for discharge home on questions pertaining to care were answered return parameters were discussed patient was discharged home in stable condition. - Lab Data Result diagrams: 10/16/18 04:24 10/16/18 04:24 Lab Results 10/16/18 10/16/18 10/16/18 Range/Units 04:24 04:24 04:24 WBC 8.0 (3.8-10.6) k/uL RBC 2.83 L (3.80-5.40) m/uL Hgb 8.1 L (11.4-16.0) gm/dL Hct 24.9 L (34.0-46.0) % MCV 88.2 (80.0-100.0) fL MCH 28.6 (25.0-35.0) pg MCHC 32.4 (31.0-37.0) g/dL RDW 15.6 H (11.5-15.5) % Plt Count 398 (150-450) k/uL Neutrophils % 72 % Lymphocytes % 11 % Monocytes % 8 % Eosinophils % 7 % Basophils % 1 % Neutrophils # 5.7 (1.3-7.7) k/uL Lymphocytes # 0.9 L (1.0-4.8) k/uL Monocytes # 0.6 (0-1.0) k/uL Eosinophils # 0.5 (0-0.7) k/uL Basophils # 0.1 (0-0.2) k/uL Hypochromasia Moderate PT 10.9 (9.0-12.0) sec INR 1.0 (<1.2) APTT 24.7 (22.0-30.0) sec Sodium 138 (137-145) mmol/L Potassium 3.8 (3.5-5.1) mmol/L Chloride 107 (98-107) mmol/L Carbon Dioxide 25 (22-30) mmol/L Anion Gap 6 mmol/L BUN 14 (7-17) mg/dL Creatinine 0.53 (0.52-1.04) mg/dL Est GFR (CKD-EPI)AfAm >90 (>60 ml/min/1.73 sqM) Est GFR (CKD-EPI)NonAf >90 (>60 ml/min/1.73 sqM) Glucose 120 H (74-99) mg/dL Calcium 9.0 (8.4-10.2) mg/dL Magnesium 1.4 L (1.6-2.3) mg/dL Total Bilirubin 0.8 (0.2-1.3) mg/dL AST 54 H (14-36) U/L ALT 48 (9-52) U/L Alkaline Phosphatase 100 (38-126) U/L Troponin I (0.000-0.034) ng/mL Total Protein 5.6 L (6.3-8.2) g/dL Albumin 2.6 L (3.5-5.0) g/dL Influenza Type A RNA (Not Detectd) Influenza Type B (PCR) (Not Detectd) 10/16/18 10/16/18 Range/Units 04:24 04:24 WBC (3.8-10.6) k/uL RBC (3.80-5.40) m/uL Hgb (11.4-16.0) gm/dL Hct (34.0-46.0) % MCV (80.0-100.0) fL MCH (25.0-35.0) pg MCHC (31.0-37.0) g/dL RDW (11.5-15.5) % Plt Count (150-450) k/uL Neutrophils % % Lymphocytes % % Monocytes % % Eosinophils % % Basophils % % Neutrophils # (1.3-7.7) k/uL Lymphocytes # (1.0-4.8) k/uL Monocytes # (0-1.0) k/uL Eosinophils # (0-0.7) k/uL Basophils # (0-0.2) k/uL Hypochromasia PT (9.0-12.0) sec INR (<1.2) APTT (22.0-30.0) sec Sodium (137-145) mmol/L Potassium (3.5-5.1) mmol/L Chloride (98-107) mmol/L Carbon Dioxide (22-30) mmol/L Anion Gap mmol/L BUN (7-17) mg/dL Creatinine (0.52-1.04) mg/dL Est GFR (CKD-EPI)AfAm (>60 ml/min/1.73 sqM) Est GFR (CKD-EPI)NonAf (>60 ml/min/1.73 sqM) Glucose (74-99) mg/dL Calcium (8.4-10.2) mg/dL Magnesium (1.6-2.3) mg/dL Total Bilirubin (0.2-1.3) mg/dL AST (14-36) U/L ALT (9-52) U/L Alkaline Phosphatase (38-126) U/L Troponin I <0.012 (0.000-0.034) ng/mL Total Protein (6.3-8.2) g/dL Albumin (3.5-5.0) g/dL Influenza Type A RNA Not Detected (Not Detectd) Influenza Type B (PCR) Not Detected (Not Detectd) - EKG Data -: EKG Interpreted by Me EKG shows normal: sinus rhythm EKG Comments: EKG obtained at 4:02 AM, rate is 66 rhythm is sinus, normal axis, normal intervals, [place] 152, QRS 88, QTC is 475, there is some movement artifact, there is no ST elevations or depressions no evidence of acute ischemia or infarction. Disposition Clinical Impression: COPD (chronic obstructive pulmonary disease) Disposition: HOME SELF-CARE Instructions (If sedation given, give patient instructions): Chronic Bronchitis (ED) Prescriptions: Ipratropium-Albuterol Nebulize [Duoneb 0.5 mg-3 mg/3 ml Soln] 3 ml INHALATION Q4H PRN #30 neb PRN Reason: Wheezing Albuterol Nebulized (Conc) [Ventolin Nebulized (Conc)] 2.5 mg INHALATION Q4H PRN #30 neb PRN Reason: Wheezing Is patient prescribed a controlled substance at d/c from ED?: No Referrals: Eliecer Vela DO [Primary Care Provider] - 1-2 days
[2018-10-16 04:41] LABS: Basophils # (A) 0.1 k/uL (0-0.2); Basophils % (A) 1 %; Eosinophils # (A) 0.5 k/uL (0-0.7); Eosinophils % (A) 7 %; HCT 24.9 % (34.0-46.0); HGB 8.1 gm/dL (11.4-16.0); Hypochromasia Moderate; Lymphocytes # (A) 0.9 k/uL (1.0-4.8); Lymphocytes % (A) 11 %; MCH 28.6 pg (25.0-35.0); MCHC 32.4 g/dL (31.0-37.0); MCV 88.2 fL (80.0-100.0); Mean Platelet Volume 6.3; Monocytes # (A) 0.6 k/uL (0-1.0); Monocytes % (A) 8 %; Neutrophils # (A) 5.7 k/uL (1.3-7.7); Neutrophils % (A) 72 %; Platelet Count 398 k/uL (150-450); RBC 2.83 m/uL (3.80-5.40); RDW 15.6 % (11.5-15.5)
[2018-10-16 04:50] LABS: ALT 48 U/L (9-52); AST 54 U/L (14-36); Albumin 2.6 g/dL (3.5-5.0); Alkaline Phosphatase 100 U/L (38-126); Anion Gap 6 mmol/L; Blood Urea Nitrogen 14 mg/dL (7-17); Carbon Dioxide 25 mmol/L (22-30); Chloride 107 mmol/L (98-107); Glucose 120 mg/dL (74-99); Magnesium 1.4 mg/dL (1.6-2.3); Partial Thromboplastin Time 24.7 sec (22.0-30.0); Potassium 3.8 mmol/L (3.5-5.1); Prothrombin Time 10.9 sec (9.0-12.0); Sodium 138 mmol/L (137-145); Total Bilirubin 0.8 mg/dL (0.2-1.3); Total Protein 5.6 g/dL (6.3-8.2)
--- NOTE | 2018-10-16 04:58 | XR ---
EXAM: XR Chest, 2 Views CLINICAL HISTORY: Reason: SOB, COPD TECHNIQUE: Frontal and lateral views of the chest. COMPARISON: Chest x-ray 04/25/2012 FINDINGS: Lungs: Pulmonary vascular congestion. Lungs are hyperaerated. Diffuse interstitial opacities throughout both lungs most suggestive of interstitial pulmonary edema. Interstitial pneumonitis would be a differential possibility. No focal pulmonary consolidation. Pleural space: Minimal bilateral pleural effusions along posterior costophrenic sulci. No evidence of pneumothorax. Heart: Heart size upper limits of normal. Mediastinum: Mediastinal structures are unremarkable. Bones/joints: Mild degenerative changes about the right glenohumeral joint. Previous left glenohumeral arthroplasty partially imaged. Vasculature: Mild thoracic aortic atherosclerotic calcifications. IMPRESSION: Heart size upper limits of normal with pulmonary vascular congestion and findings most suggestive of mild congestive failure and interstitial pulmonary edema in a patient with evidence of underlying COPD. Interstitial pneumonitis would be a differential possibility. Minimal bilateral pleural effusions.
[2018-10-16 05:03] VITALS: PULSE 68; RESP 16
[2018-10-16] MEDS ORDERED: MAGNESIUM SULFATE-D5W PMX 1 GM in DEXTROSE/WATER 1 100ML.BAG IVPB ONE (05:36)
[2018-10-16 06:55] VITALS: BP 173/64; TEMP 98
== END 2018-10-16 06:53 | disposition home or self-care (01) ==
LOC: EC 03:52
DX: J44.9 Chronic obstructive pulmonary disease, unspecified (principal); E11.9 Type 2 diabetes mellitus without complications; K21.9 Gastro-esophageal reflux disease without esophagitis; I25.2 Old myocardial infarction; I10 Essential (primary) hypertension; M19.90 Unspecified osteoarthritis, unspecified site; F32.9 Major depressive disorder, single episode, unspecified; F41.9 Anxiety disorder, unspecified; Z87.891 Personal history of nicotine dependence; Z79.82 Long term (current) use of aspirin; Z79.84 Long term (current) use of oral hypoglycemic drugs; Z79.899 Other long term (current) drug therapy
CPT/HCPCS: 36415; 94640; 80053; 83735; 84484; 85025; 85610; 85730; 87502; 71046; 99285; 96365; J3475; J7512

== ENCOUNTER → 2018-10-29 | Outpatient (CLI) | payer MEDICARE ==
--- NOTE | 2018-10-30 03:27 | US ---
EXAMINATION TYPE: US kidneys/renal and bladder DATE OF EXAM: 10/29/2018 COMPARISON: MRI 07/11/2018 CLINICAL HISTORY: 77-year-old female Renal cyst N28.1. TECHNIQUE: Multiple sonographic images of the kidneys and bladder are obtained. FINDINGS: EXAM MEASUREMENTS: Right Kidney: 15.6 x 7.9 x 8.0 cm Left Kidney: 13.8 x 8.0 x 7.4 cm Diamond Grinder notes: Patient with history of polycystic kidney disease, technically difficult study due to number of cysts and size of kidney's. Right Kidney: Enlarged with innumerable cysts largest measuring 6.4 x 7. 6 x 5.7cm, inferior pole obs cured by bowel gas. Left Kidney: measures large, large cyst, appears to have some mural-based internal echoes laterally measures 10.4 x 8.1 x 10.0cm. A similar structure was seen on the 2013 ultrasound measuring 8.8 x 8.3 x 8.9 cm. On the 07/11/2018 MRI, the largest comparable cyst measured 10.5 x 8.1 cm in the upper pole but appeared relatively simple. Follow-up contrast-enhanced CT or MRI may be needed for more detaile d comparison and further assessment of any suspicious internal solid complexity. Bladder: wnl as seen, not fully distended IMPRESSION: Innumerable bilateral renal cysts. The largest on the left measures 10.4 x 10.0 cm and may have some internal solid complexity. Follow-up contrast enhanced CT or MRI may be needed for more detailed comp arison with the patient's 07/11/2018 MRI.
== END ==
LOC: RADUSWWP 13:40
PROVIDERS: ATTEND Urology
DX: N28.1 Cyst of kidney, acquired (principal)
CPT/HCPCS: 76770

== ENCOUNTER → 2018-11-19 | Outpatient (CLI) | payer MEDICARE ==
[2018-11-19 13:00] LABS: Anion Gap 9 mmol/L; Blood Urea Nitrogen 18 mg/dL (7-17); Carbon Dioxide 25 mmol/L (22-30); Chloride 104 mmol/L (98-107); Potassium 3.8 mmol/L (3.5-5.1); Sodium 138 mmol/L (137-145)
[2018-11-19 13:12] LABS: Anisocytosis Slight; HCT 36.4 % (34.0-46.0); HGB 10.6 gm/dL (11.4-16.0); Hypochromasia Marked; MCH 25.2 pg (25.0-35.0); MCV 86.6 fL (80.0-100.0); Mean Platelet Volume 6.9; Platelet Count 306 k/uL (150-450); RDW 16.6 % (11.5-15.5); WBC 7.6 k/uL (3.8-10.6)
== END | disposition home or self-care (01) ==
LOC: LABPAT 11:03
PROVIDERS: ATTEND Internal Medicine Interventional Cardiology
DX: Z01.812 Encounter for preprocedural laboratory examination (principal); I25.10 Atherosclerotic heart disease of native coronary artery without angina pectoris
CPT/HCPCS: 36415; 80051; 82565; 84520; 85027

== ENCOUNTER 2018-11-20 12:05 | Day surgery (SDC) | payer MEDICARE ==
[2018-11-14 11:57] VITALS: BMI 27.1
[~2018-11-20 12:05] MED LIST changes: +ALPRAZolam 0.25 MG TAB PO PRN; +ALPRAZolam 0.5 MG TAB PO PRN; +ASPIRIN 325 MG TAB PO STA; +ATORVASTATIN 80 MG TAB PO STA; -MIDAZOLAM 2 MG/2 ML VIAL IV PRN; +NITROGLYCERIN SL TABS 0.4 MG TAB SUBLINGUAL PRN; -ONDANSETRON 4 MG/2 ML VIAL IVP ONE
[2018-11-20] MEDS ORDERED: amLODIPine 5 MG TAB ONE ×2 (12:32→16:05)
[2018-11-20 12:59] LABS: Glucose,Whole Blood 124 mg/dL (75-99)
[2018-11-20 13:03] VITALS: TEMP 98.3
[2018-11-20 13:10] LABS: Anisocytosis Slight; HCT 33.5 % (34.0-46.0); Hypochromasia Marked; MCH 25.8 pg (25.0-35.0); MCHC 29.8 g/dL (31.0-37.0); MCV 86.5 fL (80.0-100.0); Platelet Count 260 k/uL (150-450); RBC 3.88 m/uL (3.80-5.40); RDW 16.8 % (11.5-15.5); WBC 6.7 k/uL (3.8-10.6)
[2018-11-20] MEDS ORDERED: LIDOCAINE 1% INJ 10MG/ML (20 ML MDV) ONE (14:34)
[2018-11-20] MEDS ORDERED: LIDOCAINE 1% INJ 10MG/ML (20 ML MDV) SQ ONE (14:47)
[2018-11-20] MEDS ORDERED: MIDAZOLAM 2 MG/2 ML VIAL IV ONE (14:47)
[2018-11-20] MEDS ORDERED: RX INFO: IV CONTRAST WAS GIVEN 1 EACH MISC MISCELLANE PRN (15:02)
[2018-11-20 15:11] LABS: O2 Sat Blood Gas 64.3 %
[2018-11-20 15:14] LABS: O2 Sat Blood Gas 59.8 %
[2018-11-20] MEDS ORDERED: SODIUM CHLORIDE 0.9% 1,000 ML IV SCH (15:15)
[2018-11-20 15:17] LABS: O2 Sat Blood Gas 91.4 %
[2018-11-20] MEDS ORDERED: amLODIPine 5 MG TAB PO STA (16:03)
[2018-11-20 17:06] VITALS: BP 188/77
[2018-11-20 18:05] VITALS: PULSE 64; RESP 18
--- NOTE | 2018-11-20 18:49 | CC ---
CARDIAC CATHETERIZATION REPORT Mrs. Villarreal is a 77-year-old female with a history of coronary artery disease, peripheral vascular disease and pulmonary hypertension. In view of her pulmonary hypertension, recommendation was made regarding right heart catheterization to further evaluate her status and guide her treatment. 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 After receiving Versed and Benadryl and achieving moderate conscious sedated state, using Xylocaine anesthesia in the Seldinger technique, an 8-Bulgarian sheath was introduced in the right femoral vein. Right heart catheterization was performed using [place]-Vesta catheter. Multiple pressures and samples were obtained. Cardiac output by thermodilution was calculated. Following that, a right femoral artery. Blood samples were obtained. Following that, catheter and sheath were removed. Hemostasis was obtained with compression of the right groin. There was no immediate complication. Patient was returned to her room in stable condition. FINDINGS: Right atrial saturation of 60%, pulmonary saturation 64%, femoral artery saturation of 91%. Pulmonary artery systolic pressure off 62 mmHg. Diastolic of 16 with a mean of 36 mmHg. Pulmonary capillary wedge pressure A-wave of 15, V-wave of 13 with a mean of 10 mmHg. Right ventricle systolic pressure 64 with an end-diastolic of 10 mmHg. Right atrial A-wave of 10, V-wave of 10 with a mean of 10 mmHg. Cardiac output by Shmuel of 4.3 L/minute and by thermodilution are 4.9 L/minute. Pulmonary vascular resistance 373 dynes /sec/ CONCLUSION: Moderate pulmonary hypertension. RECOMMENDATION: Patient will be followed by Dr. Cohen to further evaluate her pulmonary pressure and guide her treatment. Those findings and recommendation were discussed with the patient and her family who are in full understanding and agreement. DURATION OF PROCEDURE: 14 minutes. MMODL / IJN: [id number] / MTDD
[2018-11-20] MEDS ORDERED: OXYBUTYNIN CHLORIDE 5 MG TAB PO SCH (21:00)
[2018-11-20] MEDS ORDERED: FLUoxetine HCL 10 MG CAP PO SCH (21:00)
[2018-11-20] MEDS ORDERED: CARVEDILOL 12.5 MG TAB PO SCH (21:00)
[2018-11-21] MEDS ORDERED: FERROUS SULFATE 325 MG TAB PO SCH (09:00)
[2018-11-21] MEDS ORDERED: ATORVASTATIN 40 MG TAB PO SCH (09:00)
[2018-11-21] MEDS ORDERED: LISINOPRIL 2.5 MG TAB PO SCH (09:00)
[2018-11-22] MEDS ORDERED: metFORMIN 500 MG TAB PO SCH (17:30)
== END 2018-11-20 18:35 | disposition home or self-care (01) ==
LOC: CATHCVL 12:05
PROVIDERS: ATTEND Internal Medicine Interventional Cardiology
DX: I27.20 Pulmonary hypertension, unspecified (principal); I25.10 Atherosclerotic heart disease of native coronary artery without angina pectoris; I10 Essential (primary) hypertension; E78.2 Mixed hyperlipidemia; E11.9 Type 2 diabetes mellitus without complications; E11.51 Type 2 diabetes mellitus with diabetic peripheral angiopathy without gangrene; Z87.891 Personal history of nicotine dependence; Z79.84 Long term (current) use of oral hypoglycemic drugs; Z79.82 Long term (current) use of aspirin; Z79.51 Long term (current) use of inhaled steroids; Z79.899 Other long term (current) drug therapy; Z88.0 Allergy status to penicillin
CPT/HCPCS: 93451; 85018; 82810; 84132; 85027; C1894 ×2; C1769; J2250; J2001

== ENCOUNTER → 2019-03-25 | Outpatient (CLI) | payer MEDICARE, OTHER ==
[2019-03-26 01:19] LABS: Anion Gap 8.2 mmol/L (4.00-12.00); Calcium 8.4 mg/dL (8.7-10.3); Carbon Dioxide 24.8 mmol/L (21.6-31.8)
== END | disposition home or self-care (01) ==
LOC: LABWHC1 14:39
PROVIDERS: ATTEND Family Medicine
DX: J44.9 Chronic obstructive pulmonary disease, unspecified (principal); E87.6 Hypokalemia
CPT/HCPCS: 36415; 80048; 85379

== ENCOUNTER → 2019-04-29 | Outpatient (CLI) | payer MEDICARE, OTHER ==
[2019-04-29 10:42] LABS: African American GFR (CKD) >90 (>60 ml/min/1.73 sqM); Blood Urea Nitrogen 22 mg/dL (7-17)
--- NOTE | 2019-04-29 12:58 | CT ---
EXAMINATION TYPE: CT abdomen wo/w con DATE OF EXAM: 04/29/2019 COMPARISON: 06/11/2018 HISTORY: 78-year-old female Renal cysts TECHNIQUE: Contiguous axial scanning of the abdomen and pelvis before and after administration of 100 ml Isovue 300 IV contrast. Delayed images through the kidneys and coronal/sagittal reconstructions performed. CT DLP: 900 mGycm Automated exposure control for dose reduction was used. FINDINGS: Heart upper limits of normal size without pericardial effusion. Dense mitral annular calcifications a re present. Reticular changes redemonstrated right greater than left basis suggesting some underlying fibrosis. N o pleural effusion. Moderate to severe atherosclerotic changes throughout the abdominal aorta and iliac arteries with aor tobiiliac stents. Few scattered subcentimeter hypodensities in the liver unchanged suggesting small cysts. Cholecystect fran clips. No biliary ductal dilatation. Portal venous system is patent. Adrenal glands, spleen, and pancreas appear within normal limits. Redemonstrated is extensive cystic change within the kidneys, largest cyst is on the left measuring u p to 10.2 cm versus 10.3 cm, previously. Second largest is on the right measuring 5.2 cm versus 4.7 cm, previously. Some intrinsic areas of hi gh density and intermediate density are present, probably representing some proteinaceous or hemorrha gic debris and is overall attenuation does not significantly change between the different phases of c ontrast. This should continue to be followed. A 1 cm cortical lesion posterior aspect of the right kidney measures 1 cm versus 8 mm previously and may have some internal enhancement, refer to axial image 32. This should be reassessed on follow-up. Additional complex cystic areas are present with internal septations, such as along the anterior righ t mid pole measuring 3.6 x 2.4 cm versus 3.6 x 2.6 cm, previously. Continued surveillance recommended . A more complex mixed solid cystic area along the lateral right lower pole measures 4.4 x 2.6 cm it is unchanged from the increasing soft tissue component, axial image 39. Follow-up recommended. On the left, a hemorrhagic versus proteinaceous cyst laterally measures 2.3 cm, minimally larger from 2.1 cm, previously. An additional hemorrhagic versus proteinaceous cyst is present medially, axial i mage 24, largely unchanged. Too numerous detail additional bilateral renal cysts/lesions are present. Fluctuating slightly in the interval, most largely stable. No dilated small bowel, free fluid, or free air. Moderate stool burden. No mesenteric or retroperiton eal lymphadenopathy. Bones: Facet arthropathy lower lumbar spine. Mild inferior endplate deformity of L2 is unchanged. IMPRESSION: 1. NUMEROUS BILATERAL RENAL CYSTS, LARGEST MEASURING UP TO 10.2 CM. 2. MANY OF THE CYSTS ARE COMPLICATED WITH HEMORRHAGIC OR PROTEINACEOUS DEBRIS AND SHOW SOME FLUCTUATI ON IN SIZE IN THE INTERVAL. 3. A FEW CYSTS ARE COMPLEX APPEARING, NOTABLY, IN THE LATERAL RIGHT LOWER POLE MEASURING 4.4 X 2.6 CM . WHILE OVERALL SIZE IS UNCHANGED, THERE MAY BE SOME INCREASING SOFT TISSUE COMPONENT. 4. CONTINUED SURVEILLANCE IS RECOMMENDED. PARTICULAR ATTENTION TO 3 LESIONS ON THE RIGHT OUTLINED ABOVE. 5. MODERATE TO SEVERE ATHEROSCLEROTIC CALCIFICATIONS ABDOMINAL AORTA AND ILIAC ARTERIES WITH AORTOBII LIAC STENTS.
== END | disposition home or self-care (01) ==
LOC: RADCTMAIN 09:24
PROVIDERS: ATTEND Urology
DX: N28.1 Cyst of kidney, acquired (principal); I70.0 Atherosclerosis of aorta; I70.8 Atherosclerosis of other arteries; Z88.0 Allergy status to penicillin
CPT/HCPCS: 82565; 84520; 74170; 36415; Q9967